=== PATIENT | male | born 1995 | race Caucasian/White ===

== ENCOUNTER 2022-06-09 18:58 | Inpatient (IN) | payer OTHER, MEDICAID, SELFPAY ==
[2022-06-09 19:38] VITALS: BP 116/68; PULSE 103; RESP 16; TEMP 36.6; O2SAT 99; BMI 20.3
[2022-06-09 19:58] LABS: Glucose, Whole Blood 599 mg/dL (60-115)
[2022-06-09 19:58] LABS: Glucose, Whole Blood > 600 mg/dL (60-115)
--- NOTE | 2022-06-09 20:03 | ED.GENADULT ---
HPI - General Adult General Chief complaint: Psychiatric Symptoms Stated complaint: SI Time Seen by Provider: 06/09/22 20:01 Source: patient Mode of arrival: ambulatory Limitations: no limitations History of Present Illness HPI narrative: This is a 26-year-old history significant for insulin-dependent diabetes, depression presenting to the emergency department with a chief complaint of suicidal ideation, depression times a few days worsening. Patient tells me that he has been battling a lot of issues at home such as housing instability, recently kicked out of his home. He tells me he was living with his cousin and today they kicked him out. He tells me he has no job, and has never been able to maintain a job. He also reports that today he had an argument with his mother. He tells me he walked here from [facility] in [facility]. Patient homicidal ideation. Suicidal with plan to overdose on insulin. Denies visual, auditory and tactile hallucinations. Denies drugs, alcohol and tobacco. He is concerned because he missed his last dose of insulin. He reports that yesterday he was discharged from [facility] where he was hospitalized with diabetic ketoacidosis. He tells me he does not feel like he is in DKA now however his sugars are elevated. Patient any medical complaints at such as chest pain, fevers, chills, nausea, vomiting, abdominal pain, vision changes and weak. Patient reports poor intake, tells me he has been having soup and no carbs. Denies toxic ingestion. Related Data Allergies Allergy/AdvReac Type Severity Reaction Status Date / Time No Known Allergies Allergy Verified 06/09/22 19:44 [No Known Allergies*] Review of Systems Review of Systems: Constitutional : No Weight loss, No Fever, No Chills, No Fatigue, No Malaise ENT/Mouth : No sore throat, No Rhinorrhea Eyes: No Eye Pain, No Swelling, No Redness Cardiovascular : No Chest Pain, No SOB, No Dyspnea on Exertion, No Orthopnea, No Edema, No Palpitations Respiratory : No Cough, No Sputum, No Wheezing Gastrointestinal : No Nausea, No Vomiting, No Diarrhea, No Constipation, No abdominal Pain, No Hematochezia, No Melena Genitourinary : No Dysuria, No Urinary Frequency, No Hematuria, Musculoskeletal : No joint pain, No Myalgias, No Joint Swelling Skin : No Skin Lesions, No rash Neuro : No Weakness, No Numbness, No Dizziness, No Headache Psych : + Anxiety/Panic, + Depression, + SI All other systems reviewed and are negative Yes all other systems are reviewed and are negative [facility] Past Medical History Attestation statement: The following information was validated with the patient. Source: old records reviewed and nursing notes reviewed Social History Social History Advance Directives: No Physical Exam ED Vital Signs: Vital Signs - 24 hr 06/09/22 19:38 Temperature 97.8 F Pulse Rate 103 H Respiratory Rate 16 Blood Pressure 116/68 Pulse Oximetry 99 Oxygen Delivery Method Room Air BMI result Body Mass Index 20.3 vss Appearance: Alert.? Oriented X3.? No acute distress.?Patient appears anxious and tearful Head: Normocephalic, atraumatic, no step-offs or deformities Eyes: Pupils equal, round and reactive to light.? ENT: Pharynx normal.? Neck: Normal inspection.? Neck supple.? CVS: Normal heart rate and rhythm.? Pulses normal.? Respiratory: No respiratory distress.? Breath sounds normal.? Abdomen: Soft and nontender.? Skin: Skin warm and dry.? Normal skin color.? Normal skin turgor.? Extremities: No lower extremity edema.? No calf ttp. 5/5 strength to bilateral upper and lower extremities Neuro: Oriented X 3.? No motor deficit.? No sensory deficit. CN 2-12 intact Course Reevaluation(s) Reevaluation #1: CBC with a normocytic anemia, chemistry with low sodium 130, patient receiving IV fluids at this time, patient is noted to have an elevated anion gap likely secondary to elevated glucose, patient also noted to have an acute kidney injury. Random glucose 681 currently receiving IV hydration will recheck point of care and administer insulin if necessary. Transaminases and alk-phos elevated however no tenderness to palpation of abdomen at this time. VBG with no acute findings. Acetone and UA pending. Unlikely that this is DKA. Salicylate low patient tells me he didnt ingest anything. Time: 21:00 Reevaluation #2: Acetone negative. Unlikely DKA. Repeat POC 310. Patient receiving hydration at this time will repeat BMP. Suspected plan admit to hospital for uncontrolled hyperglycemia and for JOSEPH. Then Psych concerns can be addressed Time: 22:01 Reevaluation #3: Lactic acidosis likely secondary to starvation ketosis due to poor po intake consistent with patient hx. Discussed this with my attending, unlikely infection Discuss this case with hospitalist who tells me this does not require hospital admission as patient is JOSEPH improved, and sugars well controlled. Also suspects lactic acidosis likely secondary to starvation ketosis. Time: 00:31 Additional Reevaluation(s): 0147 Patient now eating. Lactic pending. 0200 Repeat lactic 4.[address] Vazquez who will take over case. Medical Decision Making MDM Narrative Medical decision making narrative: 1998 26-year-old male presenting with suicidal ideation with plan to overdose on insulin and elevated sugars. Discharged from [facility] yesterday where he was admitted for diabetic ketoacidosis. Reports increasing home stressors Physical examination benign. However, patient appears to be tearful and anxious upon my exam. Vital signs stable Concerns for possible recurrent DKA. Will rule this out. Will rule out electrolyte abnormalities, infection. Plan at this time is medical clearance and evaluation by the behavioral health team. Medical Records Medical records reviewed: Yes I reviewed the patient's medical records. Lab Data Lab results reviewed: Yes I reviewed the patient's lab results. Result diagrams: 06/09/22 20:16 06/09/22 22:36 Labs: Lab Results 06/09/22 06/09/22 06/09/22 Range/Units 19:47 19:50 20:16 WBC 7.3 (4.8-10.8) X10*3/uL RBC 3.24 L (4.60-5.80) X10*6/uL Hgb 10.1 L (14.0-18.0) g/dl Hct 31.4 L (42.0-52.0) % MCV 96.9 (80.0-98.0) fL MCH 31.2 (27.0-33.0) pg MCHC 32.2 (31.0-36.0) g/dl RDW 13.1 (11.0-16.0) % Plt Count 475 H (160-400) X10*3/uL MPV 9.6 (9.4-12.4) fL Immature Gran % (Auto) 0.5 H (0.0-0.4) % Neut % (Auto) 60.1 (45-73) % Lymph % (Auto) 28.6 (20-40) % Sunflower % (Auto) 9.3 (2-11) % Eos % (Auto) 0.5 (0-4) % Baso % (Auto) 1.0 (0-2) % Lymph # (Auto) 2.1 (1.2-4.9) X10*3/uL Sunflower # (Auto) 0.7 (0.1-1.2) X10*3/uL Eos # (Auto) 0.0 (0.0-0.4) X10*3/uL Baso # (Auto) 0.1 (0.0-0.2) X10*3/uL Abs Immat Gran (auto) 0.04 H (0.00-0.03) X10*3/uL Absolute Neuts (auto) 4.4 (2.0-8.3) x10*3/uL Absolute Nucleated RBC 0.000 (0.0-0.012) X10*3/uL Nucleated RBC % (auto) 0.0 (0.0-0.2) /100WBC VBG pH (7.32-7.43) VBG pCO2 mmHg VBG pO2 mmHg VBG HCO3 (22-26) mmol/L VBG O2 Saturation % VBG Base Excess mmol/L Sodium (135-145) mmol/L Potassium (3.3-5.1) mmol/L Chloride (96-108) mmol/L Carbon Dioxide (22-29) mmol/L Anion Gap (12-20) BUN (9-16) mg/dL Creatinine (0.5-1.4) mg/dL Estim Creat Clear Calc Estimated GFR POC Glucose > 600 H* 599 H* (60-115) mg/dL Random Glucose (60-115) mg/dL Lactic Acid (0.5-2.0) mmol/L Lactic Acid F/U @ 2Hr (0.5-2.0) mmol/L Calcium (8.4-10.2) mg/dL Magnesium (1.6-2.6) mg/dL Total Bilirubin (0.0-1.0) mg/dL AST (5-37) U/L ALT (0-40) U/L Alkaline Phosphatase (39-117) U/L Total Protein (6.5-8.0) g/dL Albumin (3.5-5.0) g/dL Urine Color Urine Appearance Urine pH (5.0-9.0) Ur Specific [place] (1.005-1.025) Urine Protein (Neg-Trace) mg/dL Urine Glucose (UA) (Negative) mg/dL Urine Ketones (Negative) mg/dL Urine Blood (Negative) Urine Nitrite (Negative) Ur Leukocyte Esterase (Negative) Urine RBC (0-2) /HPF Urine WBC (0-5) /HPF Ur Squamous Epith Cells (0-2) /HPF Urine Bacteria (None Seen) Hyaline Casts (0-2) /LPF Salicylates (15-30) mg/dL Acetaminophen (<30) mcg/mL Acetone, Qual (Negative) COVID-19 (ARNOLDO) (Negative) COVID-19 Clin Com 06/09/22 06/09/22 06/09/22 Range/Units 20:16 20:16 20:21 WBC (4.8-10.8) X10*3/uL RBC (4.60-5.80) X10*6/uL Hgb (14.0-18.0) g/dl Hct (42.0-52.0) % MCV (80.0-98.0) fL MCH (27.0-33.0) pg MCHC (31.0-36.0) g/dl RDW (11.0-16.0) % Plt Count (160-400) X10*3/uL MPV (9.4-12.4) fL Immature Gran % (Auto) (0.0-0.4) % Neut % (Auto) (45-73) % Lymph % (Auto) (20-40) % Sunflower % (Auto) (2-11) % Eos % (Auto) (0-4) % Baso % (Auto) (0-2) % Lymph # (Auto) (1.2-4.9) X10*3/uL Sunflower # (Auto) (0.1-1.2) X10*3/uL Eos # (Auto) (0.0-0.4) X10*3/uL Baso # (Auto) (0.0-0.2) X10*3/uL Abs Immat Gran (auto) (0.00-0.03) X10*3/uL Absolute Neuts (auto) (2.0-8.3) x10*3/uL Absolute Nucleated RBC (0.0-0.012) X10*3/uL Nucleated RBC % (auto) (0.0-0.2) /100WBC VBG pH 7.36 (7.32-7.43) VBG pCO2 34 mmHg VBG pO2 51 mmHg VBG HCO3 19 L (22-26) mmol/L VBG O2 Saturation 76.0 % VBG Base Excess -4.9 mmol/L Sodium 130 L (135-145) mmol/L Potassium 4.6 (3.3-5.1) mmol/L Chloride 88 L (96-108) mmol/L Carbon Dioxide 18 L (22-29) mmol/L Anion Gap 29 H (12-20) BUN 23 H (9-16) mg/dL Creatinine 1.70 H (0.5-1.4) mg/dL Estim Creat Clear Calc 55.4 Estimated GFR 49 POC Glucose (60-115) mg/dL Random Glucose 681 H* (60-115) mg/dL Lactic Acid (0.5-2.0) mmol/L Lactic Acid F/U @ 2Hr (0.5-2.0) mmol/L Calcium 9.4 (8.4-10.2) mg/dL Magnesium 2.5 (1.6-2.6) mg/dL Total Bilirubin 0.3 (0.0-1.0) mg/dL AST 104 H (5-37) U/L ALT 108 H (0-40) U/L Alkaline Phosphatase 160 H (39-117) U/L Total Protein 7.5 (6.5-8.0) g/dL Albumin 4.4 (3.5-5.0) g/dL Urine Color Urine Appearance Urine pH (5.0-9.0) Ur Specific [place] (1.005-1.025) Urine Protein (Neg-Trace) mg/dL Urine Glucose (UA) (Negative) mg/dL Urine Ketones (Negative) mg/dL Urine Blood (Negative) Urine Nitrite (Negative) Ur Leukocyte Esterase (Negative) Urine RBC (0-2) /HPF Urine WBC (0-5) /HPF Ur Squamous Epith Cells (0-2) /HPF Urine Bacteria (None Seen) Hyaline Casts (0-2) /LPF Salicylates 10.1 L (15-30) mg/dL Acetaminophen < 1 (<30) mcg/mL Acetone, Qual Negative (Negative) COVID-19 (ARNOLDO) Negative (Negative) COVID-19 Clin Com See Note 06/09/22 06/09/22 06/09/22 Range/Units 21:52 22:36 22:36 WBC (4.8-10.8) X10*3/uL RBC (4.60-5.80) X10*6/uL Hgb (14.0-18.0) g/dl Hct (42.0-52.0) % MCV (80.0-98.0) fL MCH (27.0-33.0) pg MCHC (31.0-36.0) g/dl RDW (11.0-16.0) % Plt Count (160-400) X10*3/uL MPV (9.4-12.4) fL Immature Gran % (Auto) (0.0-0.4) % Neut % (Auto) (45-73) % Lymph % (Auto) (20-40) % Sunflower % (Auto) (2-11) % Eos % (Auto) (0-4) % Baso % (Auto) (0-2) % Lymph # (Auto) (1.2-4.9) X10*3/uL Sunflower # (Auto) (0.1-1.2) X10*3/uL Eos # (Auto) (0.0-0.4) X10*3/uL Baso # (Auto) (0.0-0.2) X10*3/uL Abs Immat Gran (auto) (0.00-0.03) X10*3/uL Absolute Neuts (auto) (2.0-8.3) x10*3/uL Absolute Nucleated RBC (0.0-0.012) X10*3/uL Nucleated RBC % (auto) (0.0-0.2) /100WBC VBG pH (7.32-7.43) VBG pCO2 mmHg VBG pO2 mmHg VBG HCO3 (22-26) mmol/L VBG O2 Saturation % VBG Base Excess mmol/L Sodium 139 (135-145) mmol/L Potassium 3.9 (3.3-5.1) mmol/L Chloride 95 L (96-108) mmol/L Carbon Dioxide 28 (22-29) mmol/L Anion Gap 20 (12-20) BUN 17 H (9-16) mg/dL Creatinine 1.13 (0.5-1.4) mg/dL Estim Creat Clear Calc 83.3 Estimated GFR > 60 POC Glucose 310 H (60-115) mg/dL Random Glucose 251 H D (60-115) mg/dL Lactic Acid 6.4 H* (0.5-2.0) mmol/L Lactic Acid F/U @ 2Hr (0.5-2.0) mmol/L Calcium 9.6 (8.4-10.2) mg/dL Magnesium (1.6-2.6) mg/dL Total Bilirubin (0.0-1.0) mg/dL AST (5-37) U/L ALT (0-40) U/L Alkaline Phosphatase (39-117) U/L Total Protein (6.5-8.0) g/dL Albumin (3.5-5.0) g/dL Urine Color Urine Appearance Urine pH (5.0-9.0) Ur Specific [place] (1.005-1.025) Urine Protein (Neg-Trace) mg/dL Urine Glucose (UA) (Negative) mg/dL Urine Ketones (Negative) mg/dL Urine Blood (Negative) Urine Nitrite (Negative) Ur Leukocyte Esterase (Negative) Urine RBC (0-2) /HPF Urine WBC (0-5) /HPF Ur Squamous Epith Cells (0-2) /HPF Urine Bacteria (None Seen) Hyaline Casts (0-2) /LPF Salicylates (15-30) mg/dL Acetaminophen (<30) mcg/mL Acetone, Qual (Negative) COVID-19 (ARNOLDO) (Negative) COVID-19 Clin Com 06/09/22 06/09/22 06/09/22 Range/Units 22:39 22:49 23:42 WBC (4.8-10.8) X10*3/uL RBC (4.60-5.80) X10*6/uL Hgb (14.0-18.0) g/dl Hct (42.0-52.0) % MCV (80.0-98.0) fL MCH (27.0-33.0) pg MCHC (31.0-36.0) g/dl RDW (11.0-16.0) % Plt Count (160-400) X10*3/uL MPV (9.4-12.4) fL Immature Gran % (Auto) (0.0-0.4) % Neut % (Auto) (45-73) % Lymph % (Auto) (20-40) % Sunflower % (Auto) (2-11) % Eos % (Auto) (0-4) % Baso % (Auto) (0-2) % Lymph # (Auto) (1.2-4.9) X10*3/uL Sunflower # (Auto) (0.1-1.2) X10*3/uL Eos # (Auto) (0.0-0.4) X10*3/uL Baso # (Auto) (0.0-0.2) X10*3/uL Abs Immat Gran (auto) (0.00-0.03) X10*3/uL Absolute Neuts (auto) (2.0-8.3) x10*3/uL Absolute Nucleated RBC (0.0-0.012) X10*3/uL Nucleated RBC % (auto) (0.0-0.2) /100WBC VBG pH (7.32-7.43) VBG pCO2 mmHg VBG pO2 mmHg VBG HCO3 (22-26) mmol/L VBG O2 Saturation % VBG Base Excess mmol/L Sodium (135-145) mmol/L Potassium (3.3-5.1) mmol/L Chloride (96-108) mmol/L Carbon Dioxide (22-29) mmol/L Anion Gap (12-20) BUN (9-16) mg/dL Creatinine (0.5-1.4) mg/dL Estim Creat Clear Calc Estimated GFR POC Glucose 215 H 276 H (60-115) mg/dL Random Glucose (60-115) mg/dL Lactic Acid (0.5-2.0) mmol/L Lactic Acid F/U @ 2Hr (0.5-2.0) mmol/L Calcium (8.4-10.2) mg/dL Magnesium (1.6-2.6) mg/dL Total Bilirubin (0.0-1.0) mg/dL AST (5-37) U/L ALT (0-40) U/L Alkaline Phosphatase (39-117) U/L Total Protein (6.5-8.0) g/dL Albumin (3.5-5.0) g/dL Urine Color Yellow Urine Appearance Clear Urine pH 6.5 (5.0-9.0) Ur Specific [place] 1.025 (1.005-1.025) Urine Protein Negative (Neg-Trace) mg/dL Urine Glucose (UA) >=1000 H (Negative) mg/dL Urine Ketones Negative (Negative) mg/dL Urine Blood Negative (Negative) Urine Nitrite Negative (Negative) Ur Leukocyte Esterase Negative (Negative) Urine RBC 0-2 (0-2) /HPF Urine WBC 0-5 (0-5) /HPF Ur Squamous Epith Cells 0-2 (0-2) /HPF Urine Bacteria None Seen (None Seen) Hyaline Casts 0-2 (0-2) /LPF Salicylates (15-30) mg/dL Acetaminophen (<30) mcg/mL Acetone, Qual (Negative) COVID-19 (ARNOLDO) (Negative) COVID-19 Clin Com 06/10/22 06/10/22 Range/Units 00:48 01:43 WBC (4.8-10.8) X10*3/uL RBC (4.60-5.80) X10*6/uL Hgb (14.0-18.0) g/dl Hct (42.0-52.0) % MCV (80.0-98.0) fL MCH (27.0-33.0) pg MCHC (31.0-36.0) g/dl RDW (11.0-16.0) % Plt Count (160-400) X10*3/uL MPV (9.4-12.4) fL Immature Gran % (Auto) (0.0-0.4) % Neut % (Auto) (45-73) % Lymph % (Auto) (20-40) % Sunflower % (Auto) (2-11) % Eos % (Auto) (0-4) % Baso % (Auto) (0-2) % Lymph # (Auto) (1.2-4.9) X10*3/uL Sunflower # (Auto) (0.1-1.2) X10*3/uL Eos # (Auto) (0.0-0.4) X10*3/uL Baso # (Auto) (0.0-0.2) X10*3/uL Abs Immat Gran (auto) (0.00-0.03) X10*3/uL Absolute Neuts (auto) (2.0-8.3) x10*3/uL Absolute Nucleated RBC (0.0-0.012) X10*3/uL Nucleated RBC % (auto) (0.0-0.2) /100WBC VBG pH (7.32-7.43) VBG pCO2 mmHg VBG pO2 mmHg VBG HCO3 (22-26) mmol/L VBG O2 Saturation % VBG Base Excess mmol/L Sodium (135-145) mmol/L Potassium (3.3-5.1) mmol/L Chloride (96-108) mmol/L Carbon Dioxide (22-29) mmol/L Anion Gap (12-20) BUN (9-16) mg/dL Creatinine (0.5-1.4) mg/dL Estim Creat Clear Calc Estimated GFR POC Glucose 268 H (60-115) mg/dL Random Glucose (60-115) mg/dL Lactic Acid (0.5-2.0) mmol/L Lactic Acid F/U @ 2Hr 4.2 H* (0.5-2.0) mmol/L Calcium (8.4-10.2) mg/dL Magnesium (1.6-2.6) mg/dL Total Bilirubin (0.0-1.0) mg/dL AST (5-37) U/L ALT (0-40) U/L Alkaline Phosphatase (39-117) U/L Total Protein (6.5-8.0) g/dL Albumin (3.5-5.0) g/dL Urine Color Urine Appearance Urine pH (5.0-9.0) Ur Specific [place] (1.005-1.025) Urine Protein (Neg-Trace) mg/dL Urine Glucose (UA) (Negative) mg/dL Urine Ketones (Negative) mg/dL Urine Blood (Negative) Urine Nitrite (Negative) Ur Leukocyte Esterase (Negative) Urine RBC (0-2) /HPF Urine WBC (0-5) /HPF Ur Squamous Epith Cells (0-2) /HPF Urine Bacteria (None Seen) Hyaline Casts (0-2) /LPF Salicylates (15-30) mg/dL Acetaminophen (<30) mcg/mL Acetone, Qual (Negative) COVID-19 (ARNOLDO) (Negative) COVID-19 Clin Com Critical Care Time Critical Care Time Critical Care Time: No Discharge Plan Discharge Clinical Impression: Suicidal ideation, JOSEPH (acute kidney injury), Acute hyperglycemia, Transaminitis, Acidosis, lactic Patient Disposition: Admitted As Inpatient
[2022-06-09 20:22] LABS: MANUAL DIFF FLAG NO
[2022-06-09] MEDS: 0.9 % Sodium Chloride 1,000 ML 999 ML IV ×4 (20:22→23:53)
[2022-06-09 20:24] LABS: Basophils Absolute Auto 0.1 X10*3/uL (0.0-0.2); Eosinophils Percent Auto 0.5 % (0-4); Hematocrit 31.4 % (42.0-52.0); Hemoglobin 10.1 g/dl (14.0-18.0); Imm Gran Abs Auto 0.04 X10*3/uL (0.00-0.03); Imm Gran Pct Auto 0.5 % (0.0-0.4); Lymphocytes Absolute Auto 2.1 X10*3/uL (1.2-4.9); Lymphocytes Percent Auto 28.6 % (20-40); Mean Corpuscular HGB Conc 32.2 g/dl (31.0-36.0); Mean Corpuscular Hemoglobin 31.2 pg (27.0-33.0); Mean Corpuscular Volume 96.9 fL (80.0-98.0); Mean Platelet Volume 9.6 fL (9.4-12.4); Monocytes Absolute Auto 0.7 X10*3/uL (0.1-1.2); Monocytes Percent Auto 9.3 % (2-11); Neutrophils Absolute Auto 4.4 x10*3/uL (2.0-8.3); Neutrophils Percent Auto 60.1 % (45-73); Platelet Count 475 X10*3/uL (160-400); Red Blood Count 3.24 X10*6/uL (4.60-5.80); Red Cell Distribution Width 13.1 % (11.0-16.0); White Blood Count 7.3 X10*3/uL (4.8-10.8)
[2022-06-09 20:27] LABS: VBG Base Excess -4.9 mmol/L; VBG HCO3 19 mmol/L (22-26); VBG pCO2 34 mmHg; VBG pH 7.36 (7.32-7.43); VBG pO2 51 mmHg
[2022-06-09 20:27] LABS: Venous Blood Gas Refer to POC result
[2022-06-09 20:40] LABS: COVID-19 Test Negative (Negative); IDNOW Serial# 16C4AD1C
[2022-06-09 20:47] LABS: Alanine Aminotransferase 108 U/L (0-40); Albumin Level 4.4 g/dL (3.5-5.0); Alkaline Phosphatase 160 U/L (39-117); Anion Gap 29 (12-20); Aspartate Amino Transferase 104 U/L (5-37); Bilirubin Total 0.3 mg/dL (0.0-1.0); Blood Urea Nitrogen 23 mg/dL (9-16); Calcium 9.4 mg/dL (8.4-10.2); Carbon Dioxide 18 mmol/L (22-29); Chloride 88 mmol/L (96-108); Creatinine Clr Calc Pharmacy 55.4; Estimated Glomerular Filt Rate 49; Magnesium 2.5 mg/dL (1.6-2.6); Potassium 4.6 mmol/L (3.3-5.1); Salicylate 10.1 mg/dL (15-30); Sodium 130 mmol/L (135-145); Total Protein 7.5 g/dL (6.5-8.0)
[2022-06-09 20:50] LABS: Acetaminophen LAB < 1 mcg/mL (<30)
[2022-06-09 20:58] LABS: Glucose Random 681 mg/dL (60-115)
[2022-06-09 21:07] LABS: Acetone, serum QL Negative (Negative)
[2022-06-09] MEDS: Insulin Regular, Human 100 UNIT/ML 3 ML VIAL 10 UNIT IVPUSH (21:37)
[2022-06-09 21:57] LABS: Glucose, Whole Blood 310 mg/dL (60-115)
[2022-06-09 22:53] LABS: Appearance Urine Clear; Color Urine Yellow; Glucose Urine UA >=1000 mg/dL (Negative); Leukocyte Esterase Urine Negative (Negative); Nitrite Urine Negative (Negative); PH 6.5 (5.0-9.0); Specific Gravity - Urine 1.025 (1.005-1.025); UMIC TRIGGER UACC YES; Urine Blood Negative (Negative); Urine Ketones Negative (Negative); Urine Protein Negative (Neg-Trace)
[2022-06-09 22:55] LABS: Glucose, Whole Blood 215 mg/dL (60-115)
[2022-06-09 22:58] LABS: Bacteria Urine None Seen (None Seen); Hyaline Casts Urine 0-2 /LPF (0-2); RBC Urine 0-2 /HPF (0-2); Squamous Epithelial Cell Urine 0-2 /HPF (0-2); WBC Urine 0-5 /HPF (0-5)
[2022-06-09 23:05] LABS: Anion Gap 20 (12-20); Blood Urea Nitrogen 17 mg/dL (9-16); Calcium 9.6 mg/dL (8.4-10.2); Carbon Dioxide 28 mmol/L (22-29); Chloride 95 mmol/L (96-108); Creatinine Clr Calc Pharmacy 83.3; Estimated Glomerular Filt Rate > 60; Glucose Random 251 mg/dL (60-115); Potassium 3.9 mmol/L (3.3-5.1); Sodium 139 mmol/L (135-145)
[2022-06-09 23:46] LABS: Glucose, Whole Blood 276 mg/dL (60-115)
--- NOTE | 2022-06-09 23:48 | PC.NURSE ---
poc 276 pt states this is his baseline, skin pink warm and dry. sitter present 1:1.
[2022-06-10] VITALS (7 sets, daily range): BP systolic 115–171; BP diastolic 64–106; PULSE 88–98; RESP 12–18; TEMP 36.6–36.9; O2SAT 92–99
[2022-06-10 00:24] LABS: Lactic Acid 6.4 mmol/L (0.5-2.0)
[2022-06-10 00:46] LABS: Reflex Lactate? Lactic Acid Added
[2022-06-10 00:52] LABS: Glucose, Whole Blood 268 mg/dL (60-115)
--- NOTE | 2022-06-10 01:49 | ECG_ITS ---
Test Reason : DIABETIC Blood Pressure : / mmHG Vent. Rate : 095 BPM Atrial Rate : 095 BPM P-R Int : 112 ms QRS Dur : 090 ms QT Int : 352 ms P-R-T Axes : 053 -01 063 degrees QTc Int : 442 ms Normal sinus rhythm Normal ECG No previous ECGs available Referred By: Nathan Edwards Electronically Signed By:TOREY MCKEON
[2022-06-10 02:01] LABS: ~Lactic Acid-LAB USE ONLY 4.2 mmol/L (0.5-2.0)
[2022-06-10 02:23] LABS: Procalcitonin 0.86 ng/mL
[2022-06-10 03:37] LABS: Acetaminophen LAB < 1 mcg/mL (<30); Salicylate < 5.0 mg/dL (15-30)
[2022-06-10] MEDS: 0.9 % Sodium Chloride 1,000 ML 999 ML IV (03:39)
[2022-06-10 03:46] LABS: Reflex Lactate? 2 Y
[2022-06-10 05:42] LABS: Glucose, Whole Blood 560 mg/dL (60-115)
--- NOTE | 2022-06-10 06:47 | PC.NURSE ---
pt poc elevated due to a sandwhicha and soda sugar free sprite given to pt.
[2022-06-10 06:48] LABS: ~Lactic Acid-LAB USE ONLY 1.6 mmol/L (0.5-2.0)
[2022-06-10 07:07] LABS: Glucose, Whole Blood 533 mg/dL (60-115)
[2022-06-10 07:15] LABS: Glucose, Whole Blood 579 mg/dL (60-115)
[2022-06-10] MEDS: Insulin Glargine,Hum.rec.anlog 100 UNIT/ML 10 ML VIAL 10 UNIT SUBCUT ×3 (08:32→20:49)
--- NOTE | 2022-06-10 08:44 | PC.NURSE ---
sitter at bedside, talkative and pleasant, breakfast given after insulin, md spoke w pt and pharmacy did as well, now eating breakfast
--- NOTE | 2022-06-10 09:07 | PHA.MEDREC ---
Pharmacy Consult ? Medication Reconciliation Pharmacy has completed the medication reconciliation. Pt poor historian, seemingly getting confused about long vs short acting insulin. Stated he doesn't take his long acting at the same time daily because it depends on if I eat. He also was unclear about whether he takes it once or twice daily. Also stated he no longer takes his escitalopram due to GI side effects
[2022-06-10 09:08] LABS: Basophils Absolute Auto 0.1 X10*3/uL (0.0-0.2); Eosinophils Absolute Auto 0.2 X10*3/uL (0.0-0.4); Eosinophils Percent Auto 2.2 % (0-4); Hematocrit 32.1 % (42.0-52.0); Hemoglobin 10.5 g/dl (14.0-18.0); Imm Gran Abs Auto 0.01 X10*3/uL (0.00-0.03); Imm Gran Pct Auto 0.1 % (0.0-0.4); Lymphocytes Absolute Auto 2.4 X10*3/uL (1.2-4.9); Lymphocytes Percent Auto 35.5 % (20-40); MANUAL DIFF FLAG NO; Mean Corpuscular HGB Conc 32.7 g/dl (31.0-36.0); Mean Corpuscular Hemoglobin 30.9 pg (27.0-33.0); Mean Corpuscular Volume 94.4 fL (80.0-98.0); Mean Platelet Volume 9.3 fL (9.4-12.4); Monocytes Absolute Auto 0.5 X10*3/uL (0.1-1.2); Monocytes Percent Auto 7.2 % (2-11); Neutrophils Absolute Auto 3.6 x10*3/uL (2.0-8.3); Platelet Count 424 X10*3/uL (160-400); Red Cell Distribution Width 13.1 % (11.0-16.0); White Blood Count 6.7 X10*3/uL (4.8-10.8)
[2022-06-10 09:09] LABS: Venous Blood Gas Refer to POC result
[2022-06-10 09:09] LABS: VBG Base Excess -3.1 mmol/L; VBG HCO3 20 mmol/L (22-26); VBG pCO2 33 mmHg; VBG pO2 98 mmHg
[2022-06-10 09:25] LABS: Anion Gap 21 (12-20); Blood Urea Nitrogen 15 mg/dL (9-16); Calcium 8.7 mg/dL (8.4-10.2); Carbon Dioxide 22 mmol/L (22-29); Chloride 92 mmol/L (96-108); Creatinine Clr Calc Pharmacy 74.1; Estimated Glomerular Filt Rate > 60; Glucose Random 687 mg/dL (60-115); Potassium 4.5 mmol/L (3.3-5.1); Sodium 130 mmol/L (135-145)
[2022-06-10 09:43] LABS: Insulin 12 uU/mL (2-29)
[2022-06-10 11:43] LABS: Glucose, Whole Blood 302 mg/dL (60-115)
[2022-06-10 12:38] LABS: Glucose, Whole Blood 316 mg/dL (60-115)
[2022-06-10 13:35] LABS: Glucose, Whole Blood 293 mg/dL (60-115)
[2022-06-10] MEDS: Insulin Lispro 100 UNIT/ML 3 ML VIAL SUBCUT ×2 (15:17→20:48)
[2022-06-10 17:03] LABS: Glucose, Whole Blood 106 mg/dL (60-115)
--- NOTE | 2022-06-10 18:14 | PC.NURSE ---
came from main ed due to depression and si waiting for bed on m5
[2022-06-10 18:15] LABS: Glucose, Whole Blood 116 mg/dL (60-115)
[2022-06-10 20:35] LABS: Glucose, Whole Blood 366 mg/dL (60-115)
--- NOTE | 2022-06-10 21:07 | PC.NURSE ---
Pt was admitted on CV to M3 @1915 with SI w/plan to OD on diabetes medications. COVID-negative. During assessment, pt was A&O, INAD, pleasant and cooperative. He is recently homeless after being kicked out of cousin?s house, has been arguing with his mother and feeling hopeless. ALLERGIES: NKA. Legal status: EDUARDA Sosa No. COVID ?Negative 06/09/22 UTOX: Salicylates <5(L); acetaminophen <1; acetones negative. Mood: depressed; Affect restricted. Substance use: None. Vapes nicotine. MedHx: DM since age 13. DKA at age 21. Pt reports hx of blood sugar dropping at night. Neuropathy in feet bilat. Hx acute kidney injury per record, however pt denied. Reports broken L great toe; recently R hand injury after hitting hard surface. PsycheHx: F43.21 Adjustment disorder; F32.9 Unspecified depressive disorder..VS at admission 98.4, 93, 16, 124/84, 99%. POC 366, received scheduled Lantus and Humalog per sliding scale.
[2022-06-10 22:00] LABS: Glucose, Whole Blood 332 mg/dL (60-115)
[2022-06-11] MEDS: traZODone HCL 50 MG TABLET PO ×2 (00:34→22:56)
[2022-06-11 05:30] LABS: Glucose, Whole Blood 179 mg/dL (60-115)
[2022-06-11 08:00] VITALS: BP 91/54; PULSE 99; RESP 16; TEMP 36.6; O2SAT 97
[2022-06-11 08:59] LABS: Glucose, Whole Blood 168 mg/dL (60-115)
[2022-06-11 09:12] LABS: Estimated Average Glucose 269 mg/dL
[2022-06-11] MEDS: Omeprazole 20 MG CAPSULE.DR PO (09:25)
[2022-06-11] MEDS: Acetaminophen 325 MG TABLET 650 MG PO (09:25)
[2022-06-11] MEDS: Insulin Lispro 100 UNIT/ML 3 ML VIAL SUBCUT ×4 (09:27→21:27)
[2022-06-11] MEDS: Insulin Glargine,Hum.rec.anlog 100 UNIT/ML 10 ML VIAL 10 UNIT SUBCUT ×2 (09:29→21:28)
[2022-06-11 09:55] LABS: Cholesterol 229 mg/dL; HDL Cholesterol 64 mg/dL; LDL Cholesterol Calculated 134 mg/dl; Magnesium 2.1 mg/dL (1.6-2.6); Triglycerides 155 mg/dL
[2022-06-11 10:02] LABS: Thyroid Stimulating Hormone 3.49 uIU/mL (0.32-4.0)
[2022-06-11 10:09] LABS: Folate 8.2 ng/mL (> or = 4.0); Vitamin B12 421 pg/mL (200-900)
[2022-06-11 12:40] LABS: Glucose, Whole Blood 264 mg/dL (60-115)
[2022-06-11 17:16] LABS: Glucose, Whole Blood 373 mg/dL (60-115)
--- NOTE | 2022-06-11 17:53 | HO.PSYADMNOT ---
HPI Date of Service: 06/11/22 Chief Complaint: depression with suicidal ideation HPI Narrative: per crisis evaluation, pt self-presented to [facility] ED with c/o SI. he denied SI at the time of the crisis evaluation, however, and c/o depression and anxiety due to situational stress (housing and finances). onset was 06/09, day prior to presentation. he presented with dysphoric, tearful, affect. he stated his grandmother had urged him to go to the ED and the hospital would help him with housing if he was suicidal. pt was requesting discharge with referral to therapy. an hour after plan for discharge with outpt referrals was made, pt stated he no longer felt safe for discharge and informed staff that if he were discharged from the ED he would overdose on his insulin. he then told staff he has had numerous inpt stays; one was at [facility] about 5 years ago, which was ultimately verified. he was then referred for admission. on interview with on psych floor, pt reported he was kicked out of his cousin's house the day of his presentation to the ED. he also said something about going back and forth between shelters in the time since he was kicked out of his cousin's house, which was confusing, because by the timeframe he presented he did not have any nights between his cousin's house and the ED. he stated he is looking for entitlements and half-way. he believes he has a mental illness which affects his ability to work and would like to document this and apply for SSDI. he reported SI currently. he stated he sleeps 2-3 hours nightly and is experiencing hopelessness. he describes his concentration as poor. he states his motivation and interest are adequate, his energy is OK, and his appetite is really good. he has no requests or hopes for the hospitalization aside from help getting entitlements/housing and documented as being psychiatrically disabled. Past Psychiatric History: reported long-standing h/o depression and h/o outpt Tx with psychiatry to crisis team. pt denied h/o SA to crisis team, only ideation to overdose on insulin. reports more than 5 hosps to [facility] about a year ago in [place]. states had 4 in [place] and one at [facility] about 5 yrs ago. reports he has attempted suicide via overdose twice in [place]. he denies any h/o SIB. states he has not had any outpt Tx since he was about 17 yo. Medical Evaluation Reviewed: Yes [facility] Narrative: DM Family History: denies Social History: came up from [place] 3 or 4 months ago. 11th grade education. unemployed, reports he had been working at [employer] until last month, when seasonal lay-offs began. had been staying with his cousin until they kicked him out 06/09. grandmother is primary social support. Substance History: denies any current substance use; vape pen only Trauma History: denies Diagnostics Vital Signs (24Hr): Vital Signs - 24 hr 06/10/22 18:20 06/10/22 19:15 06/10/22 19:15 Temperature 98.4 F 98.4 F Pulse Rate 93 93 Respiratory Rate 16 16 16 Blood Pressure 124/84 124/84 Pulse Oximetry 99 99 Oxygen Delivery Method Room Air Room Air 06/10/22 20:48 06/11/22 08:00 Temperature 98.4 F 97.8 F Pulse Rate 93 99 Respiratory Rate 18 16 Blood Pressure 124/84 91/54 L Pulse Oximetry 99 97 Oxygen Delivery Method Room Air Room Air BMI result Body Mass Index 20.3 Labs Results: 06/10/22 08:58 06/10/22 08:58 Labs: Laboratory Results - last 48 hr 06/09/22 06/09/22 06/09/22 19:47 19:50 20:16 WBC 7.3 RBC 3.24 L Hgb 10.1 L Hct 31.4 L MCV 96.9 MCH 31.2 MCHC 32.2 RDW 13.1 Plt Count 475 H MPV 9.6 Immature Gran % (Auto) 0.5 H Neut % (Auto) 60.1 Lymph % (Auto) 28.6 Bonner % (Auto) 9.3 Eos % (Auto) 0.5 Baso % (Auto) 1.0 Lymph # (Auto) 2.1 Bonner # (Auto) 0.7 Eos # (Auto) 0.0 Baso # (Auto) 0.1 Abs Immat Gran (auto) 0.04 H Absolute Neuts (auto) 4.4 Absolute Nucleated RBC 0.000 Nucleated RBC % (auto) 0.0 VBG pH VBG pCO2 VBG pO2 VBG HCO3 VBG O2 Saturation VBG Base Excess Sodium Potassium Chloride Carbon Dioxide Anion Gap BUN Creatinine Estim Creat Clear Calc Estimated GFR POC Glucose > 600 H* 599 H* Random Glucose Estimat Average Glucose Hemoglobin A1c % Insulin Level Lactic Acid Lactic Acid F/U @ 2Hr Lactic Acid F/U @ 4Hr Calcium Magnesium Total Bilirubin AST ALT Alkaline Phosphatase Total Protein Albumin Triglycerides Cholesterol LDL Cholesterol, Calc HDL Cholesterol Vitamin B12 Folate Procalcitonin TSH Free T4 Urine Color Urine Appearance Urine pH Ur Specific [place] Urine Protein Urine Glucose (UA) Urine Ketones Urine Blood Urine Nitrite Ur Leukocyte Esterase Urine RBC Urine WBC Ur Squamous Epith Cells Urine Bacteria Hyaline Casts Salicylates Acetaminophen Acetone, Qual COVID-19 ([facility]) COVID-19 [employer] Com 06/09/22 06/09/22 06/09/22 20:16 20:16 20:21 WBC RBC Hgb Hct MCV MCH MCHC RDW Plt Count MPV Immature Gran % (Auto) Neut % (Auto) Lymph % (Auto) [place] % (Auto) Eos % (Auto) Baso % (Auto) Lymph # (Auto) [place] # (Auto) Eos # (Auto) Baso # (Auto) Abs Immat Gran (auto) Absolute Neuts (auto) Absolute Nucleated RBC Nucleated RBC % (auto) VBG pH 7.36 VBG pCO2 34 VBG pO2 51 VBG HCO3 19 L VBG O2 Saturation 76.0 VBG Base Excess -4.9 Sodium 130 L Potassium 4.6 Chloride 88 L Carbon Dioxide 18 L Anion Gap 29 H BUN 23 H Creatinine 1.70 H Estim Creat Clear Calc 55.4 Estimated GFR 49 POC Glucose Random Glucose 681 H* Estimat Average Glucose Hemoglobin A1c % Insulin Level Lactic Acid Lactic Acid F/U @ 2Hr Lactic Acid F/U @ 4Hr Calcium 9.4 Magnesium 2.5 Total Bilirubin 0.3 AST 104 H ALT 108 H Alkaline Phosphatase 160 H Total Protein 7.5 Albumin 4.4 Triglycerides Cholesterol LDL Cholesterol, Calc HDL Cholesterol Vitamin B12 Folate Procalcitonin TSH Free T4 Urine Color Urine Appearance Urine pH Ur Specific [place] Urine Protein Urine Glucose (UA) Urine Ketones Urine Blood Urine Nitrite Ur Leukocyte Esterase Urine RBC Urine WBC Ur Squamous Epith Cells Urine Bacteria Hyaline Casts Salicylates 10.1 L Acetaminophen < 1 Acetone, Qual Negative COVID-19 ([facility]DO) Negative COVID-19 Clin Com See Note 06/09/22 06/09/22 06/09/22 21:52 22:36 22:36 WBC RBC Hgb Hct MCV MCH MCHC RDW Plt Count MPV Immature Gran % (Auto) Neut % (Auto) Lymph % (Auto) [place] % (Auto) Eos % (Auto) Baso % (Auto) Lymph # (Auto) [place] # (Auto) Eos # (Auto) Baso # (Auto) Abs Immat Gran (auto) Absolute Neuts (auto) Absolute Nucleated RBC Nucleated RBC % (auto) VBG pH VBG pCO2 VBG pO2 VBG HCO3 VBG O2 Saturation VBG Base Excess Sodium 139 Potassium 3.9 Chloride 95 L Carbon Dioxide 28 Anion Gap 20 BUN 17 H Creatinine 1.13 Estim Creat Clear Calc 83.3 Estimated GFR > 60 POC Glucose 310 H Random Glucose 251 H D Estimat Average Glucose Hemoglobin A1c % Insulin Level Lactic Acid 6.4 H* Lactic Acid F/U @ 2Hr Lactic Acid F/U @ 4Hr Calcium 9.6 Magnesium Total Bilirubin AST ALT Alkaline Phosphatase Total Protein Albumin Triglycerides Cholesterol LDL Cholesterol, Calc HDL Cholesterol Vitamin B12 Folate Procalcitonin TSH Free T4 Urine Color Urine Appearance Urine pH Ur Specific [place] Urine Protein Urine Glucose (UA) Urine Ketones Urine Blood Urine Nitrite Ur Leukocyte Esterase Urine RBC Urine WBC Ur Squamous Epith Cells Urine Bacteria Hyaline Casts Salicylates Acetaminophen Acetone, Qual COVID-19 ([facility]) COVID-19 Clin Com 06/09/22 06/09/22 06/09/22 22:39 22:49 23:42 WBC RBC Hgb Hct MCV MCH MCHC RDW Plt Count MPV Immature Gran % (Auto) Neut % (Auto) Lymph % (Auto) [place] % (Auto) Eos % (Auto) Baso % (Auto) Lymph # (Auto) [place] # (Auto) Eos # (Auto) Baso # (Auto) Abs Immat Gran (auto) Absolute Neuts (auto) Absolute Nucleated RBC Nucleated RBC % (auto) VBG pH VBG pCO2 VBG pO2 VBG HCO3 VBG O2 Saturation VBG Base Excess Sodium Potassium Chloride Carbon Dioxide Anion Gap BUN Creatinine Estim Creat Clear Calc Estimated GFR POC Glucose 215 H 276 H Random Glucose Estimat Average Glucose Hemoglobin A1c % Insulin Level Lactic Acid Lactic Acid F/U @ 2Hr Lactic Acid F/U @ 4Hr Calcium Magnesium Total Bilirubin AST ALT Alkaline Phosphatase Total Protein Albumin Triglycerides Cholesterol LDL Cholesterol, Calc HDL Cholesterol Vitamin B12 Folate Procalcitonin TSH Free T4 Urine Color Yellow Urine Appearance Clear Urine pH 6.5 Ur Specific [place] 1.025 Urine Protein Negative Urine Glucose (UA) >=1000 H Urine Ketones Negative Urine Blood Negative Urine Nitrite Negative Ur Leukocyte Esterase Negative Urine RBC 0-2 Urine WBC 0-5 Ur Squamous Epith Cells 0-2 Urine Bacteria None Seen Hyaline Casts 0-2 Salicylates Acetaminophen Acetone, Qual COVID-19 ([facility]) COVID-19 Clin Com 06/10/22 06/10/22 06/10/22 00:48 01:43 02:55 WBC RBC Hgb Hct MCV MCH MCHC RDW Plt Count MPV Immature Gran % (Auto) Neut % (Auto) Lymph % (Auto) [place] % (Auto) Eos % (Auto) Baso % (Auto) Lymph # (Auto) [place] # (Auto) Eos # (Auto) Baso # (Auto) Abs Immat Gran (auto) Absolute Neuts (auto) Absolute Nucleated RBC Nucleated RBC % (auto) VBG pH VBG pCO2 VBG pO2 VBG HCO3 VBG O2 Saturation VBG Base Excess Sodium Potassium Chloride Carbon Dioxide Anion Gap BUN Creatinine Estim Creat Clear Calc Estimated GFR POC Glucose 268 H Random Glucose Estimat Average Glucose Hemoglobin A1c % Insulin Level Lactic Acid Lactic Acid F/U @ 2Hr 4.2 H* Lactic Acid F/U @ 4Hr Calcium Magnesium Total Bilirubin AST ALT Alkaline Phosphatase Total Protein Albumin Triglycerides Cholesterol LDL Cholesterol, Calc HDL Cholesterol Vitamin B12 Folate Procalcitonin TSH Free T4 Urine Color Urine Appearance Urine pH Ur Specific [place] Urine Protein Urine Glucose (UA) Urine Ketones Urine Blood Urine Nitrite Ur Leukocyte Esterase Urine RBC Urine WBC Ur Squamous Epith Cells Urine Bacteria Hyaline Casts Salicylates < 5.0 L Acetaminophen < 1 Acetone, Qual COVID-19 ([facility]) COVID-19 Clin Com 06/10/22 06/10/22 06/10/22 05:37 06:09 06:50 WBC RBC Hgb Hct MCV MCH MCHC RDW Plt Count MPV Immature Gran % (Auto) Neut % (Auto) Lymph % (Auto) [place] % (Auto) Eos % (Auto) Baso % (Auto) Lymph # (Auto) [place] # (Auto) Eos # (Auto) Baso # (Auto) Abs Immat Gran (auto) Absolute Neuts (auto) Absolute Nucleated RBC Nucleated RBC % (auto) VBG pH VBG pCO2 VBG pO2 VBG HCO3 VBG O2 Saturation VBG Base Excess Sodium Potassium Chloride Carbon Dioxide Anion Gap BUN Creatinine Estim Creat Clear Calc Estimated GFR POC Glucose 560 H* 533 H* Random Glucose Estimat Average Glucose Hemoglobin A1c % Insulin Level Lactic Acid Lactic Acid F/U @ 2Hr Lactic Acid F/U @ 4Hr 1.6 Calcium Magnesium Total Bilirubin AST ALT Alkaline Phosphatase Total Protein Albumin Triglycerides Cholesterol LDL Cholesterol, Calc HDL Cholesterol Vitamin B12 Folate Procalcitonin TSH Free T4 Urine Color Urine Appearance Urine pH Ur Specific [place] Urine Protein Urine Glucose (UA) Urine Ketones Urine Blood Urine Nitrite Ur Leukocyte Esterase Urine RBC Urine WBC Ur Squamous Epith Cells Urine Bacteria Hyaline Casts Salicylates Acetaminophen Acetone, Qual COVID-19 ([facility]) COVID-19 [employer] Com 06/10/22 06/10/22 06/10/22 07:11 08:58 08:58 WBC 6.7 RBC 3.40 L Hgb 10.5 L Hct 32.1 L MCV 94.4 MCH 30.9 MCHC 32.7 RDW 13.1 Plt Count 424 H MPV 9.3 L Immature Gran % (Auto) 0.1 Neut % (Auto) 54.0 Lymph % (Auto) 35.5 [place] % (Auto) 7.2 Eos % (Auto) 2.2 Baso % (Auto) 1.0 Lymph # (Auto) 2.4 [place] # (Auto) 0.5 Eos # (Auto) 0.2 Baso # (Auto) 0.1 Abs Immat Gran (auto) 0.01 Absolute Neuts (auto) 3.6 Absolute Nucleated RBC 0.000 Nucleated RBC % (auto) 0.0 VBG pH VBG pCO2 VBG pO2 VBG HCO3 VBG O2 Saturation VBG Base Excess Sodium 130 L Potassium 4.5 Chloride 92 L Carbon Dioxide 22 Anion Gap 21 H BUN 15 Creatinine 1.27 Estim Creat Clear Calc 74.1 Estimated GFR > 60 POC Glucose 579 H* Random Glucose 687 H* Estimat Average Glucose Hemoglobin A1c % Insulin Level 12 Lactic Acid Lactic Acid F/U @ 2Hr Lactic Acid F/U @ 4Hr Calcium 8.7 D Magnesium Total Bilirubin AST ALT Alkaline Phosphatase Total Protein Albumin Triglycerides Cholesterol LDL Cholesterol, Calc HDL Cholesterol Vitamin B12 Folate Procalcitonin TSH Free T4 Urine Color Urine Appearance Urine pH Ur Specific [place] Urine Protein Urine Glucose (UA) Urine Ketones Urine Blood Urine Nitrite Ur Leukocyte Esterase Urine RBC Urine WBC Ur Squamous Epith Cells Urine Bacteria Hyaline Casts Salicylates Acetaminophen Acetone, Qual COVID-19 ([facility]DO) COVID-19 [facility] 06/10/22 06/10/22 06/10/22 08:59 09:04 11:40 WBC RBC Hgb Hct MCV MCH MCHC RDW Plt Count MPV Immature Gran % (Auto) Neut % (Auto) Lymph % (Auto) [place] % (Auto) Eos % (Auto) Baso % (Auto) Lymph # (Auto) [place] # (Auto) Eos # (Auto) Baso # (Auto) Abs Immat Gran (auto) Absolute Neuts (auto) Absolute Nucleated RBC Nucleated RBC % (auto) VBG pH 7.40 VBG pCO2 33 VBG pO2 98 VBG HCO3 20 L VBG O2 Saturation 98.0 VBG Base Excess -3.1 Sodium Potassium Chloride Carbon Dioxide Anion Gap BUN Creatinine Estim Creat Clear Calc Estimated GFR POC Glucose 302 H Random Glucose Estimat Average Glucose Hemoglobin A1c % Insulin Level Lactic Acid 2.0 Lactic Acid F/U @ 2Hr Lactic Acid F/U @ 4Hr Calcium Magnesium Total Bilirubin AST ALT Alkaline Phosphatase Total Protein Albumin Triglycerides Cholesterol LDL Cholesterol, Calc HDL Cholesterol Vitamin B12 Folate Procalcitonin TSH Free T4 Urine Color Urine Appearance Urine pH Ur Specific [place] Urine Protein Urine Glucose (UA) Urine Ketones Urine Blood Urine Nitrite Ur Leukocyte Esterase Urine RBC Urine WBC Ur Squamous Epith Cells Urine Bacteria Hyaline Casts Salicylates Acetaminophen Acetone, Qual COVID-19 ([facility]) COVID-19 [facility] 06/10/22 06/10/22 06/10/22 12:32 13:28 17:00 WBC RBC Hgb Hct MCV MCH MCHC RDW Plt Count MPV Immature Gran % (Auto) Neut % (Auto) Lymph % (Auto) [place] % (Auto) Eos % (Auto) Baso % (Auto) Lymph # (Auto) [place] # (Auto) Eos # (Auto) Baso # (Auto) Abs Immat Gran (auto) Absolute Neuts (auto) Absolute Nucleated RBC Nucleated RBC % (auto) VBG pH VBG pCO2 VBG pO2 VBG HCO3 VBG O2 Saturation VBG Base Excess Sodium Potassium Chloride Carbon Dioxide Anion Gap BUN Creatinine Estim Creat Clear Calc Estimated GFR POC Glucose 316 H 293 H 106 Random Glucose Estimat Average Glucose Hemoglobin A1c % Insulin Level Lactic Acid Lactic Acid F/U @ 2Hr Lactic Acid F/U @ 4Hr Calcium Magnesium Total Bilirubin AST ALT Alkaline Phosphatase Total Protein Albumin Triglycerides Cholesterol LDL Cholesterol, Calc HDL Cholesterol Vitamin B12 Folate Procalcitonin TSH Free T4 Urine Color Urine Appearance Urine pH Ur Specific [place] Urine Protein Urine Glucose (UA) Urine Ketones Urine Blood Urine Nitrite Ur Leukocyte Esterase Urine RBC Urine WBC Ur Squamous Epith Cells Urine Bacteria Hyaline Casts Salicylates Acetaminophen Acetone, Qual COVID-19 ([facility]) COVID-19 Clin Com 06/10/22 06/10/22 06/10/22 18:11 20:16 20:31 WBC RBC Hgb Hct MCV MCH MCHC RDW Plt Count MPV Immature Gran % (Auto) Neut % (Auto) Lymph % (Auto) [place] % (Auto) Eos % (Auto) Baso % (Auto) Lymph # (Auto) [place] # (Auto) Eos # (Auto) Baso # (Auto) Abs Immat Gran (auto) Absolute Neuts (auto) Absolute Nucleated RBC Nucleated RBC % (auto) VBG pH VBG pCO2 VBG pO2 VBG HCO3 VBG O2 Saturation VBG Base Excess Sodium Potassium Chloride Carbon Dioxide Anion Gap BUN Creatinine Estim Creat Clear Calc Estimated GFR POC Glucose 116 H 366 H* Random Glucose Estimat Average Glucose Hemoglobin A1c % Insulin Level Lactic Acid Lactic Acid F/U @ 2Hr Lactic Acid F/U @ 4Hr Calcium Magnesium Total Bilirubin AST ALT Alkaline Phosphatase Total Protein Albumin Triglycerides Cholesterol LDL Cholesterol, Calc HDL Cholesterol Vitamin B12 Folate Procalcitonin 0.86 TSH Free T4 Urine Color Urine Appearance Urine pH Ur Specific [place] Urine Protein Urine Glucose (UA) Urine Ketones Urine Blood Urine Nitrite Ur Leukocyte Esterase Urine RBC Urine WBC Ur Squamous Epith Cells Urine Bacteria Hyaline Casts Salicylates Acetaminophen Acetone, Qual COVID-19 ([facility]) COVID-19 Clin Com 06/10/22 06/11/22 06/11/22 21:55 05:25 07:52 WBC RBC Hgb Hct MCV MCH MCHC RDW Plt Count MPV Immature Gran % (Auto) Neut % (Auto) Lymph % (Auto) [place] % (Auto) Eos % (Auto) Baso % (Auto) Lymph # (Auto) [place] # (Auto) Eos # (Auto) Baso # (Auto) Abs Immat Gran (auto) Absolute Neuts (auto) Absolute Nucleated RBC Nucleated RBC % (auto) VBG pH VBG pCO2 VBG pO2 VBG HCO3 VBG O2 Saturation VBG Base Excess Sodium Potassium Chloride Carbon Dioxide Anion Gap BUN Creatinine Estim Creat Clear Calc Estimated GFR POC Glucose 332 H 179 H Random Glucose Estimat Average Glucose 269 Hemoglobin A1c % 11.0 Insulin Level Lactic Acid Lactic Acid F/U @ 2Hr Lactic Acid F/U @ 4Hr Calcium Magnesium Total Bilirubin AST ALT Alkaline Phosphatase Total Protein Albumin Triglycerides Cholesterol LDL Cholesterol, Calc HDL Cholesterol Vitamin B12 Folate Procalcitonin TSH Free T4 Urine Color Urine Appearance Urine pH Ur Specific [place] Urine Protein Urine Glucose (UA) Urine Ketones Urine Blood Urine Nitrite Ur Leukocyte Esterase Urine RBC Urine WBC Ur Squamous Epith Cells Urine Bacteria Hyaline Casts Salicylates Acetaminophen Acetone, Qual COVID-19 ([facility]) [employer] 06/11/22 06/11/22 06/11/22 07:52 07:52 08:51 WBC RBC Hgb Hct MCV MCH MCHC RDW Plt Count MPV Immature Gran % (Auto) Neut % (Auto) Lymph % (Auto) [place] % (Auto) Eos % (Auto) Baso % (Auto) Lymph # (Auto) [place] # (Auto) Eos # (Auto) Baso # (Auto) Abs Immat Gran (auto) Absolute Neuts (auto) Absolute Nucleated RBC Nucleated RBC % (auto) VBG pH VBG pCO2 VBG pO2 VBG HCO3 VBG O2 Saturation VBG Base Excess Sodium Potassium Chloride Carbon Dioxide Anion Gap BUN Creatinine Estim Creat Clear Calc Estimated GFR POC Glucose 168 H Random Glucose Estimat Average Glucose Hemoglobin A1c % Insulin Level Lactic Acid Lactic Acid F/U @ 2Hr Lactic Acid F/U @ 4Hr Calcium Magnesium 2.1 Total Bilirubin AST ALT Alkaline Phosphatase Total Protein Albumin Triglycerides 155 Cholesterol 229 LDL Cholesterol, Calc 134 HDL Cholesterol 64 Vitamin B12 421 Folate 8.2 Procalcitonin TSH 3.49 Free T4 1.10 Urine Color Urine Appearance Urine pH Ur Specific [place] Urine Protein Urine Glucose (UA) Urine Ketones Urine Blood Urine Nitrite Ur Leukocyte Esterase Urine RBC Urine WBC Ur Squamous Epith Cells Urine Bacteria Hyaline Casts Salicylates Acetaminophen Acetone, Qual COVID-19 ([facility]OLDO) [employer] 06/11/22 06/11/22 12:37 17:11 WBC RBC Hgb Hct MCV MCH MCHC RDW Plt Count MPV Immature Gran % (Auto) Neut % (Auto) Lymph % (Auto) [place] % (Auto) Eos % (Auto) Baso % (Auto) Lymph # (Auto) [place] # (Auto) Eos # (Auto) Baso # (Auto) Abs Immat Gran (auto) Absolute Neuts (auto) Absolute Nucleated RBC Nucleated RBC % (auto) VBG pH VBG pCO2 VBG pO2 VBG HCO3 VBG O2 Saturation VBG Base Excess Sodium Potassium Chloride Carbon Dioxide Anion Gap BUN Creatinine Estim Creat Clear Calc Estimated GFR POC Glucose 264 H 373 H* Random Glucose Estimat Average Glucose Hemoglobin A1c % Insulin Level Lactic Acid Lactic Acid F/U @ 2Hr Lactic Acid F/U @ 4Hr Calcium Magnesium Total Bilirubin AST ALT Alkaline Phosphatase Total Protein Albumin Triglycerides Cholesterol LDL Cholesterol, Calc HDL Cholesterol Vitamin B12 Folate Procalcitonin TSH Free T4 Urine Color Urine Appearance Urine pH Ur Specific [place] Urine Protein Urine Glucose (UA) Urine Ketones Urine Blood Urine Nitrite Ur Leukocyte Esterase Urine RBC Urine WBC Ur Squamous Epith Cells Urine Bacteria Hyaline Casts Salicylates Acetaminophen Acetone, Qual COVID-19 ([facility]) COVID-19 Clin Com Meds/Allergies Meds Home Medications Medication Instructions Recorded Confirmed Type insulin glargine 100 unit/mL (3 9 unit subcut DAILY 06/10/22 06/10/22 History mL) subcutaneous pen (Basaglar KwikPen U-100 Insulin) insulin lispro 100 unit/mL 3 - 12 unit subcut TID 06/10/22 06/10/22 History subcutaneous pen (Humalog KwikPen (U-100) Insulin) pantoprazole 20 mg tablet,delayed 1 tab PO DAILY 06/10/22 06/10/22 History release Allergies Allergies Allergy/AdvReac Type Severity Reaction Status Date / Time No Known Allergies Allergy Verified 06/09/22 19:44 [No Known Allergies*] Mental Status Exam Mental Status Exam Narrative: adequately dressed and groomed. cooperative, no PMA/PMR. speech nml rate, amount, loudness, latency. somewhat flattened prosody. thoughts linear and logical. affect constricted, hypo-intense, non-labile. mood calm day. but 7 on a scale of zero to bad. endorses SI, hopelessness, racing thoughts. no HI/AVH. Assessment & Plan Assessment & Plan (1) JOSEPH (acute kidney injury): Status: Acute Code(s): N17.9 - Acute kidney failure, unspecified (2) Acute hyperglycemia: Status: Acute Code(s): R73.9 - Hyperglycemia, unspecified (3) Transaminitis: Status: Acute Code(s): R74.01 - Elevation of levels of liver transaminase levels (4) Acidosis, lactic: Status: Acute Code(s): E87.20 - Acidosis, unspecified (5) Adjustment disorder with mixed anxiety and depressed mood: Status: Acute Code(s): F43.23 - Adjustment disorder with mixed anxiety and depressed mood (6) Malingering: Status: Acute Code(s): Z76.5 - Malingerer [conscious simulation] Plan pt appears to have misled staff in the ED in order to obtain half-way, flip-flopping from suicidal to not to suicidal again. he is requesting help getting entitlements and SSDI. he has expressed no interest in actual mental health treatment. observe, attempt to engage in groups, assess needs, attempt to provide child protective services social worker or refer for such services. Patient educated on: substance abuse Reason for continued inpatient stay Substantial Risk for: rapid decompensation
[2022-06-11 20:59] VITALS: BP 107/66; PULSE 97; RESP 18; TEMP 36.7; O2SAT 100
[2022-06-11 21:17] LABS: Glucose, Whole Blood 243 mg/dL (60-115)
[2022-06-12] MEDS: Omeprazole 20 MG CAPSULE.DR PO (05:36)
[2022-06-12 05:38] LABS: Glucose, Whole Blood 301 mg/dL (60-115)
[2022-06-12] MEDS: Insulin Glargine,Hum.rec.anlog 100 UNIT/ML 10 ML VIAL 10 UNIT SUBCUT ×2 (08:27→21:29)
[2022-06-12] MEDS: Insulin Lispro 100 UNIT/ML 3 ML VIAL SUBCUT ×4 (09:20→21:30)
[2022-06-12] MEDS: Loperamide HCl 2 MG CAPSULE PO (09:21)
[2022-06-12] MEDS: Acetaminophen 325 MG TABLET 650 MG PO (09:21)
[2022-06-12 09:36] VITALS: BP 107/61; PULSE 98; RESP 16; TEMP 36.6; O2SAT 99
--- NOTE | 2022-06-12 12:21 | PC.NURSE ---
Dr. Xiong aware of high blood sugar. No additional insulin at this time. Retake POC in 30 min.
--- NOTE | 2022-06-12 12:35 | P.PNPSI_ITS ---
Subjective Subjective Date of Service: 06/12/22 Reason For Visit: depression with suicidal ideation Vital Signs (24Hr): homelessness. advantage of him 09:36 agrees to trial of Wellbutrin for depression. Diagnostics Vital Signs (24Hr): protien with diabetic diet. Mental Status Exam Mental Status Exam Narrative: 09:36
--- NOTE | 2022-06-12 12:35 | HO.PSYCHPN ---
Subjective Subjective Date of Service: 06/12/22 Reason For Visit: depression with suicidal ideation Interim History: Pt reports depression and is sad that he was kicked out of his cousins; he feels family is holding his past behaviors against him even thought he's changed (does not give specifics). Pt reports he has a little bit of SI now, feeling abandoned by his family and facing homelessness. shares Long hx of people taking advantage of him regarding medications, he was prescribed lexapro 20mg 05/25/22 however said it gave him diarrhea for 2 weeks so stopped; his of zoloft but not sure if helpful. agrees to trial of Wellbutrin for depression. discussed DM and A1C; pt says he's been eating a Keto diet for years to lower blood sugar; seems he could not understand that despite this, A1C is still very elevated. NOt sure about having diet changed since he's is not given enough protien with diabetic diet. Mental Status Exam Mental Status Exam Narrative: Pt is alert and oriented; behavior is cooperative, friendly, anxious; patient is not in distress; dressed in casual attire adequate hygiene; mood is described as depressed and affect congruent, anxious; eye contact appropriate; Speech is normal rate, volume and prosody and not pressured; no psychomotor agitation/retardation present; thought process is goal directed but concrete; Thought content is on hopelessness of situation, homeless, being taken advantage of; otherwise pertinent to relevant topics and without any delusional content, paranoid ideations or grandiosity; +SI; no HI; There is no evidence of perceptual disturbance. Patients insight and judgment are impaired. Diagnostics Vital Signs (24Hr): Vital Signs - 24 hr 06/11/22 20:59 06/12/22 09:36 Temperature 98.1 F 97.9 F Pulse Rate 97 98 Respiratory Rate 18 16 Blood Pressure 107/66 107/61 Pulse Oximetry 100 99 Oxygen Delivery Method Room Air Room Air BMI result Body Mass Index 20.3 Labs Results: 06/10/22 08:58 06/13/22 08:04 Labs: Laboratory Results - last 48 hr 06/10/22 06/10/22 06/10/22 12:32 13:28 17:00 POC Glucose 316 H 293 H 106 Estimat Average Glucose Hemoglobin A1c % Magnesium Triglycerides Cholesterol LDL Cholesterol, Calc HDL Cholesterol Vitamin B12 Folate TSH Free T4 06/10/22 06/10/2222 18:11 20:31 21:55 POC Glucose 116 H 366 H* 332 H Estimat Average Glucose Hemoglobin A1c % Magnesium Triglycerides Cholesterol LDL Cholesterol, Calc HDL Cholesterol Vitamin B12 Folate TSH Free T4 06/11/22 06/11/22 06/11/22 05:25 07:52 07:52 POC Glucose 179 H Estimat Average Glucose 269 Hemoglobin A1c % 11.0 Magnesium 2.1 Triglycerides 155 Cholesterol 229 LDL Cholesterol, Calc 134 HDL Cholesterol 64 Vitamin B12 Folate TSH 3.49 Free T4 1.10 06/11/22 06/11/22 06/11/22 07:52 08:51 12:37 POC Glucose 168 H 264 H Estimat Average Glucose Hemoglobin A1c % Magnesium Triglycerides Cholesterol LDL Cholesterol, Calc HDL Cholesterol Vitamin B12 421 Folate 8.2 TSH Free T4 06/11/22 06/11/22 06/12/22 17:11 21:13 05:34 POC Glucose 373 H* 243 H 301 H Estimat Average Glucose Hemoglobin A1c % Magnesium Triglycerides Cholesterol LDL Cholesterol, Calc HDL Cholesterol Vitamin B12 Folate TSH Free T4 06/12/22 06/12/22 06/12/22 08:22 11:20 12:14 POC Glucose 186 H 371 H* 285 H Estimat Average Glucose Hemoglobin A1c % Magnesium Triglycerides Cholesterol LDL Cholesterol, Calc HDL Cholesterol Vitamin B12 Folate TSH Free T4 Medications Medications Current Medications Acetaminophen (Acetaminophen 325 Mg Tablet) 650 mg PO Q6H PRN PRN Reason: Headache/Pain Mild Scale (1-3) Last Admin: 06/12/22 09:21 Dose: 650 mg Al Hydroxide/Mg Hydroxide (Magnesium Hydrox/Alum Hydrox 30 Ml Oral.Susp) 30 ml PO Q6H PRN PRN Reason: Heartburn/Nausea Insulin Glargine (Insulin Glargine,Hum.Rec.Anlog 100 Unit/Ml 10 Ml Vial) 10 unit SUBCUT BID [facility] Last Admin: 06/12/22 08:27 Dose: 10 unit Insulin Human Lispro (Insulin Lispro 100 Unit/Ml 3 Ml Vial) 0 unit SUBCUT QIDACHS [facility]; Protocol Last Admin: 06/12/22 11:36 Dose: 10 unit Loperamide HCl (Loperamide Hcl 2 Mg Capsule) 2 mg PO Q6H PRN PRN Reason: Diarrhea Last Admin: 06/12/22 09:21 Dose: 2 mg Magnesium Hydroxide (Milk Of Magnesia 30 Ml Oral.Susp) 30 ml PO DAILY PRN PRN Reason: Constipation Omeprazole (Omeprazole 20 Mg Capsule.Dr) 20 mg PO DAILY@0630 [facility] Last Admin: 06/12/22 05:36 Dose: 20 mg Trazodone HCl (Trazodone Hcl 50 Mg Tablet) 50 mg PO BEDTIME PRN PRN Reason: insomnia Last Admin: 06/11/22 22:56 Dose: 50 mg Allergies Allergies Allergy/AdvReac Type Severity Reaction Status Date / Time No Known Allergies Allergy Verified 06/09/22 19:44 [No Known Allergies*] Assessment & Plan Assessment & Plan (1) Adjustment disorder with mixed anxiety and depressed mood: Status: Acute Code(s): F43.23 - Adjustment disorder with mixed anxiety and depressed mood (2) JOSEPH (acute kidney injury): Status: Acute Code(s): N17.9 - Acute kidney failure, unspecified (3) Acute hyperglycemia: Status: Acute Code(s): R73.9 - Hyperglycemia, unspecified (4) Transaminitis: Status: Acute Code(s): R74.01 - Elevation of levels of liver transaminase levels (5) Acidosis, lactic: Status: Acute Code(s): E87.20 - Acidosis, unspecified (6) Malingering: Status: Acute Code(s): Z76.5 - Malingerer [conscious simulation] Plan pt appears to have misled staff in the ED in order to obtain halfway, flip-flopping from suicidal to not to suicidal again. he is requesting help getting entitlements and SSDI. he has expressed no interest in actual mental health treatment. observe, attempt to engage in groups, assess needs, attempt to provide social science research assistant or refer for such services. 06/12 depressed, a little bit of SI; psychosocial stressors upsetting. was orderd lexapro 20mg 05/25/22 however said it gave him diarrhea for 2 weeks so stopped; agrees to Wellbutrin PLAN: q15 CV START Wellbutrin XL 150mg daily for depression DM poorly controlled due to diet: discussed with dr. Saha who recommends increasing sliding scale units by 2 units starting for sugars at 201-250 ordering Diabetic diet (pt has poor compliance with diabetic eating) order BMP if sugars continue to be elevated increase Lantus to 15mg daily (and continue Lantus 10mg at bedtime) I spent minutes with the patient and/or on the patient floor today, greater than?50% of which was spent counseling/coordinating care. Reason for contiued inpatient stay Substantial Risk for: rapid decompensation
[2022-06-12 20:25] VITALS: BP 116/66; PULSE 105; RESP 16; TEMP 36.2; O2SAT 99
[2022-06-12] MEDS: traZODone HCL 50 MG TABLET PO ×2 (22:22→23:58)
[2022-06-13 02:11] LABS: Glucose, Whole Blood 364 mg/dL (60-115)
[2022-06-13] MEDS: Omeprazole 20 MG CAPSULE.DR PO (06:25)
[2022-06-13 08:15] VITALS: BP 117/74; PULSE 96; RESP 16; TEMP 36.3; O2SAT 96
[2022-06-13] MEDS: Insulin Glargine,Hum.rec.anlog 100 UNIT/ML 10 ML VIAL 10 UNIT SUBCUT ×2 (08:19→21:01)
[2022-06-13] MEDS: buPROPion HCl XL 150 MG TAB.ER.24H PO (08:22)
[2022-06-13 09:06] LABS: Anion Gap 19 (12-20); Blood Urea Nitrogen 36 mg/dL (9-16); Calcium 9.1 mg/dL (8.4-10.2); Carbon Dioxide 24 mmol/L (22-29); Chloride 98 mmol/L (96-108); Creatinine Clr Calc Pharmacy 74.7; Estimated Glomerular Filt Rate > 60; Glucose Random 345 mg/dL (60-115); Sodium 136 mmol/L (135-145)
[2022-06-13] MEDS: Insulin Lispro 100 UNIT/ML 3 ML VIAL SUBCUT ×4 (09:07→21:00)
--- NOTE | 2022-06-13 14:50 | PC.NURSE ---
Patient reported to staff he punched a wall yesterday following upset lunch came up wrong. Bruising to R 3rd knuckle, with edema noted. Dr. Xiong notified.
--- NOTE | 2022-06-13 15:24 | HO.PSYCHPN ---
Subjective Subjective Date of Service: 06/13/22 Reason For Visit: depression with suicidal ideation Interim History: Patient reports that his mood is a little better. He said he is not feeling so depressed. Sometimes he has suicidal thoughts when thinking about being discharged and homeless however he denies having a plan. He thinks that Wellbutrin may be helping and wants it left at current dose. Discussed patient's blood sugar and he agrees to increasing daytime Lantus. Patient did get frustrated today when his meal was incorrect and punched a wall though not very hard; he says it does not hurt and service writer examined and there is no tenderness on palpation and hand is fully functioning. Mental Status Exam Mental Status Exam Narrative: Pt is alert and oriented; behavior is cooperative, friendly, calm; patient is not in distress; dressed in casual attire adequate hygiene; mood is described as a little better and affect congruent, less anxious; eye contact appropriate; Speech is normal rate, volume and prosody and not pressured; no psychomotor agitation/retardation present; thought process is goal directed but concrete; Thought content is on trying to fight off hopelessness of situation, homelessness; otherwise pertinent to relevant topics and without any delusional content, paranoid ideations or grandiosity; intermittent SI but denies plan/intent; no HI; There is no evidence of perceptual disturbance. Patients insight and judgment are impaired but improving. Diagnostics Vital Signs (24Hr): Vital Signs - 24 hr 06/12/22 20:25 06/13/22 08:15 Temperature 97.1 F 97.4 F Pulse Rate 105 H 96 Respiratory Rate 16 16 Blood Pressure 116/66 117/74 Pulse Oximetry 99 96 Oxygen Delivery Method Room Air Room Air BMI result Body Mass Index 20.3 Labs Results: 06/10/22 08:58 06/13/22 08:04 Labs: Laboratory Results - last 48 hr 06/11/22 06/11/22 06/12/22 17:11 21:13 05:34 Sodium Potassium Chloride Carbon Dioxide Anion Gap BUN Creatinine Estim Creat Clear Calc Estimated GFR POC Glucose 373 H* 243 H 301 H Random Glucose Calcium 06/12/22 06/12/22 06/12/22 08:22 11:20 12:14 Sodium Potassium Chloride Carbon Dioxide Anion Gap BUN Creatinine Estim Creat Clear Calc Estimated GFR POC Glucose 186 H 371 H* 285 H Random Glucose Calcium 10/04/2606/12/22 06/13/22 18:08 21:09 02:05 Sodium Potassium Chloride Carbon Dioxide Anion Gap BUN Creatinine Estim Creat Clear Calc Estimated GFR POC Glucose 229 H 359 H* 364 H* Random Glucose Calcium 06/13/22 06/13/22 06/13/22 06:27 08:04 09:00 Sodium 136 Potassium 5.0 Chloride 98 Carbon Dioxide 24 Anion Gap 19 BUN 36 H D Creatinine 1.26 Estim Creat Clear Calc 74.7 Estimated GFR > 60 POC Glucose 184 H 350 H* Random Glucose 345 H D Calcium 9.1 06/13/22 13:04 Sodium Potassium Chloride Carbon Dioxide Anion Gap BUN Creatinine Estim Creat Clear Calc Estimated GFR POC Glucose 155 H Random Glucose Calcium Medications Medications Current Medications Acetaminophen (Acetaminophen 325 Mg Tablet) 650 mg PO Q6H PRN PRN Reason: Headache/Pain Mild Scale (1-3) Last Admin: 06/12/22 09:21 Dose: 650 mg Al Hydroxide/Mg Hydroxide (Magnesium Hydrox/Alum Hydrox 30 Ml Oral.Susp) 30 ml PO Q6H PRN PRN Reason: Heartburn/Nausea Bupropion HCl (Bupropion Hcl Xl 150 Mg Tab.Er.24h) 150 mg PO DAILY [facility] Last Admin: 06/13/22 08:22 Dose: 150 mg Insulin Glargine (Insulin Glargine,Hum.Rec.Anlog 100 Unit/Ml 10 Ml Vial) 10 unit SUBCUT BEDTIME [facility] Insulin Glargine (Insulin Glargine,Hum.Rec.Anlog 100 Unit/Ml 10 Ml Vial) 15 unit SUBCUT DAILY [facility] Insulin Human Lispro (Insulin Lispro 100 Unit/Ml 3 Ml Vial) 0 unit SUBCUT QIDACHS [facility]; Protocol Last Admin: 06/13/22 13:07 Dose: 2 unit Loperamide HCl (Loperamide Hcl 2 Mg Capsule) 2 mg PO Q6H PRN PRN Reason: Diarrhea Last Admin: 06/12/22 09:21 Dose: 2 mg Magnesium Hydroxide (Milk Of Magnesia 30 Ml Oral.Susp) 30 ml PO DAILY PRN PRN Reason: Constipation Omeprazole (Omeprazole 20 Mg Capsule.Dr) 20 mg PO DAILY@0630 [facility] Last Admin: 06/13/22 06:25 Dose: 20 mg Trazodone HCl (Trazodone Hcl 50 Mg Tablet) 50 mg PO BEDTIME PRN PRN Reason: insomnia Last Admin: 06/12/22 23:58 Dose: 50 mg Trazodone HCl (Trazodone Hcl 50 Mg Tablet) 50 mg PO BEDTIME [facility] Last Admin: 06/12/22 22:22 Dose: 50 mg Allergies Allergies Allergy/AdvReac Type Severity Reaction Status Date / Time No Known Allergies Allergy Verified 06/09/22 19:44 [No Known Allergies*] Assessment & Plan Assessment & Plan (1) Adjustment disorder with mixed anxiety and depressed mood: Status: Acute Code(s): F43.23 - Adjustment disorder with mixed anxiety and depressed mood (2) JOSEPH (acute kidney injury): Status: Acute Code(s): N17.9 - Acute kidney failure, unspecified (3) Acute hyperglycemia: Status: Acute Code(s): R73.9 - Hyperglycemia, unspecified (4) Transaminitis: Status: Acute Code(s): R74.01 - Elevation of levels of liver transaminase levels (5) Acidosis, lactic: Status: Acute Code(s): E87.20 - Acidosis, unspecified (6) Malingering: Status: Acute Code(s): Z76.5 - Malingerer [conscious simulation] Plan pt appears to have misled staff in the ED in order to obtain jail, flip-flopping from suicidal to not to suicidal again. he is requesting help getting entitlements and SSDI. he has expressed no interest in actual mental health treatment. observe, attempt to engage in groups, assess needs, attempt to provide social group worker or refer for such services. 06/12 depressed, a little bit of SI; psychosocial stressors upsetting. was orderd lexapro 20mg 05/25/22 however said it gave him diarrhea for 2 weeks so stopped; agrees to Wellbutrin 06/13 patient reports his mood is a little bit better and though sometimes has SI, denies plans or intent. Feels Wellbutrin is helping. Agrees to increasing Lantus PLAN: q15 CV Continue Wellbutrin XL 150mg daily for depression Increase bedtime Lantus to 15 mg daily Who returned to regular diet since patient is diabetic diet left him without protein that he wanted DM poorly controlled due to diet: discussed with dr. Saha who recommends increasing sliding scale units by 2 units starting for sugars at 201-250 ordering Diabetic diet (pt has poor compliance with diabetic eating) order BMP if sugars continue to be elevated increase Lantus to 15mg daily (and continue Lantus 10mg at bedtime) I spent minutes with the patient and/or on the patient floor today, greater than?50% of which was spent counseling/coordinating care. Patient educated on: diagnosis, medication risk/benefits and medical condition Informed Consent: understands Reason for contiued inpatient stay Substantial Risk for: rapid decompensation
[2022-06-13 18:22] VITALS: BP 116/64; PULSE 98; RESP 16; TEMP 36.3; O2SAT 99
[2022-06-13] MEDS: Acetaminophen 325 MG TABLET 650 MG PO (19:57)
[2022-06-13] MEDS: traZODone HCL 50 MG TABLET PO (23:11)
[2022-06-14 05:18] LABS: Glucose, Whole Blood 347 mg/dL (60-115)
--- NOTE | 2022-06-14 06:05 | PC.NURSE ---
lower extremities-bilateral edema noted in legs at 0045. on rising at 0500 bilateral edema has decreased. great toe L foot was off colored with redness. report HX within last several months of having a FX toe. did come in the hospital with orthoepic shoe for L foot and sneaker for R. requested use of foot wear and issued.
[2022-06-14 08:39] LABS: Glucose, Whole Blood 406 mg/dL (60-115)
[2022-06-14 08:45] VITALS: BP 108/65; PULSE 106; RESP 16; TEMP 36.6; O2SAT 97
[2022-06-14] MEDS: Insulin Glargine,Hum.rec.anlog 100 UNIT/ML 10 ML VIAL 15 UNIT SUBCUT ×3 (08:59→21:00)
[2022-06-14] MEDS: Insulin Lispro 100 UNIT/ML 3 ML VIAL SUBCUT ×3 (08:59→20:56)
[2022-06-14] MEDS: Omeprazole 20 MG CAPSULE.DR PO (09:00)
[2022-06-14] MEDS: buPROPion HCl XL 150 MG TAB.ER.24H PO (09:00)
--- NOTE | 2022-06-14 10:45 | PC.NURSE ---
ll nursing documentation in this chart from 06/14/2022 0800am through 10:30 am was completed by Tahmina Ramon RN. I was loggied in in error as Jacquelyn Denny RN.
--- NOTE | 2022-06-14 10:53 | MHC.CLN ---
NUTRITION CONSULT FOR KETOGENIC DIET; NEEDS HELP GETTING KETO DIET . VISITED WITH PATIENT ON UNIT. EXPLAINED REASON FOR VISIT IS REPORT THAT HE WOULD LIKE A KETO DIET. ADVISED PATIENT THAT THIS CELL RELINER DOES NOT ENDORSE KETOGENIC DIET FOR HIM, BUT DIABETIC DIET APPROPRIATE. HE STATED THAT HAS BEEN FOLLOWING KETO DIET X 5 YEARS. THIS CELL RELINER PROVIDED AN ARTICLE FROM [employer] ABOUT KETO DIET AND FOODS. PATIENT ACCEPTED ARTICLE. PATIENT WITH DX DM AND A1C=11 ON 06/11. HIGH POC GLUCOSE VALUES. A1C AND POC SHOW POOR BLOOD GLUCOSE CONTROL. AGREES TO GLUCERNA TID. WILL PROVIDE ADDITIONAL 710 CALS, 30 G PROTEIN. SUPPLEMENT TO PROVIDE BALANCED NUTRITION. HAS HAD PRIOR MEDICAL ADVICE TO NOT FOLLOW KETO DIET. THIS CELL RELINER STATED TO PATIENT THAT DOES NOT ENDORSE KETO DET FOR HIM.
[2022-06-14 12:44] LABS: Glucose, Whole Blood 122 mg/dL (60-115)
--- NOTE | 2022-06-14 13:13 | HO.PSYCHPN ---
Subjective Subjective Date of Service: 06/14/22 Reason For Visit: depression with suicidal ideation Interim History: Late entry note for patient seen on 06/14 Patient reports that he is doing better and in a better mood. He says he still can get depressed and stressed when he thinks about being homeless and suicidal thoughts can intermittently come however he says he has no plans to act on it and they are just thoughts. He feels that his medication dose is good and wants to remain with. Patient also made a plan with nurse to keep a diary of all food consumed so he can get a better idea of his snacking and why his sugars are so high. He agrees to Lantus increased to 15 mg b.i.d. Mental Status Exam Mental Status Exam Narrative: Pt is alert and oriented; behavior is cooperative, friendly, calm; patient is not in distress; dressed in casual attire adequate hygiene; mood is described as a little better and affect congruent, less anxious; eye contact appropriate; Speech is normal rate, volume and prosody and not pressured; no psychomotor agitation/retardation present; thought process is goal directed but concrete; Thought content is on trying to fight off hopelessness of situation, homelessness; otherwise pertinent to relevant topics and without any delusional content, paranoid ideations or grandiosity; intermittent SI but denies plan/intent; no HI; There is no evidence of perceptual disturbance. Patients insight and judgment are impaired but improving. Diagnostics Vital Signs (24Hr): Vital Signs - 24 hr 06/14/22 20:45 Temperature 98.4 F Pulse Rate 104 H Respiratory Rate 18 Blood Pressure 126/68 Pulse Oximetry 98 Oxygen Delivery Method Room Air BMI result Body Mass Index 20.3 Labs Results: 06/10/22 08:58 06/13/22 08:04 Labs: Laboratory Results - last 48 hr 06/13/22 06/13/22 06/14/22 17:25 20:45 05:14 POC Glucose 287 H 407 H* 347 H 06/14/22 06/14/22 06/14/22 08:36 12:39 17:37 POC Glucose 406 H* 122 H 332 H 06/14/22 06/15/22 06/15/22 20:42 08:39 12:44 POC Glucose 277 H 200 H 297 H Medications Medications Current Medications Acetaminophen (Acetaminophen 325 Mg Tablet) 650 mg PO Q6H PRN PRN Reason: Headache/Pain Mild Scale (1-3) Last Admin: 06/15/22 06:37 Dose: 650 mg Al Hydroxide/Mg Hydroxide (Magnesium Hydrox/Alum Hydrox 30 Ml Oral.Susp) 30 ml PO Q6H PRN PRN Reason: Heartburn/Nausea Bupropion HCl (Bupropion Hcl Xl 150 Mg Tab.Er.24h) 150 mg PO DAILY [facility] Last Admin: 06/15/22 09:13 Dose: 150 mg Glucose (Glucose Gel 15 Gm Gel..Gram.) 15 gm PO Q15M PRN PRN Reason: per Hypoglycemia Standing Ord. Insulin Glargine (Insulin Glargine,Hum.Rec.Anlog 100 Unit/Ml 10 Ml Vial) 15 unit SUBCUT DAILY [facility] Last Admin: 06/15/22 09:11 Dose: 15 unit Insulin Glargine (Insulin Glargine,Hum.Rec.Anlog 100 Unit/Ml 10 Ml Vial) 15 unit SUBCUT BEDTIME [facility] Last Admin: 06/14/22 21:00 Dose: 15 unit Insulin Human Lispro (Insulin Lispro 100 Unit/Ml 3 Ml Vial) 0 unit SUBCUT QIDACHS [facility]; Protocol Last Admin: 06/15/22 13:03 Dose: 8 unit Loperamide HCl (Loperamide Hcl 2 Mg Capsule) 2 mg PO Q6H PRN PRN Reason: Diarrhea Last Admin: 06/12/22 09:21 Dose: 2 mg Magnesium Hydroxide (Milk Of Magnesia 30 Ml Oral.Susp) 30 ml PO DAILY PRN PRN Reason: Constipation Omeprazole (Omeprazole 20 Mg Capsule.Dr) 20 mg PO DAILY@0630 [facility] Last Admin: 06/15/22 06:38 Dose: 20 mg Trazodone HCl (Trazodone Hcl 50 Mg Tablet) 50 mg PO BEDTIME PRN PRN Reason: insomnia Last Admin: 06/12/22 23:58 Dose: 50 mg Trazodone HCl (Trazodone Hcl 50 Mg Tablet) 50 mg PO BEDTIME [facility] Last Admin: 06/14/22 20:44 Dose: 50 mg Allergies Allergies Allergy/AdvReac Type Severity Reaction Status Date / Time No Known Allergies Allergy Verified 06/09/22 19:44 [No Known Allergies*] Assessment & Plan Assessment & Plan (1) Adjustment disorder with mixed anxiety and depressed mood: Status: Acute Code(s): F43.23 - Adjustment disorder with mixed anxiety and depressed mood (2) JOSEPH (acute kidney injury): Status: Acute Code(s): N17.9 - Acute kidney failure, unspecified (3) Acute hyperglycemia: Status: Acute Code(s): R73.9 - Hyperglycemia, unspecified (4) Transaminitis: Status: Acute Code(s): R74.01 - Elevation of levels of liver transaminase levels (5) Acidosis, lactic: Status: Acute Code(s): E87.20 - Acidosis, unspecified (6) Malingering: Status: Acute Code(s): Z76.5 - Malingerer [conscious simulation] Plan pt appears to have misled staff in the ED in order to obtain jail, flip-flopping from suicidal to not to suicidal again. he is requesting help getting entitlements and SSDI. he has expressed no interest in actual mental health treatment. observe, attempt to engage in groups, assess needs, attempt to provide social work associate or refer for such services. 06/12 depressed, a little bit of SI; psychosocial stressors upsetting. was orderd lexapro 20mg 05/25/22 however said it gave him diarrhea for 2 weeks so stopped; agrees to Wellbutrin 06/13 patient reports his mood is a little bit better and though sometimes has SI, denies plans or intent. Feels Wellbutrin is helping. Agrees to increasing Lantus 06/14 patient reports mood is a little better, still some SI but less so and no plans or intent. Working on getting his eating under control as his diabetes is currently poorly controlled PLAN: q15 CV Continue Wellbutrin XL 150mg daily for depression Increase to Lantus to 15 mg b.i.d. for continued elevated blood sugars Who returned to regular diet since patient is diabetic diet left him without protein that he wanted; nutritional list will had jiménez to order DM poorly controlled due to diet: discussed with dr. Saha who recommends increasing sliding scale units by 2 units starting for sugars at 201-250 ordering Diabetic diet (pt has poor compliance with diabetic eating) order BMP if sugars continue to be elevated increase Lantus to 15mg daily (and continue Lantus 10mg at bedtime) I spent minutes with the patient and/or on the patient floor today, greater than?50% of which was spent counseling/coordinating care. Patient educated on: diagnosis, medication risk/benefits and medical condition Informed Consent: understands Reason for contiued inpatient stay Substantial Risk for: stable for discharge
[2022-06-14 17:42] LABS: Glucose, Whole Blood 332 mg/dL (60-115)
[2022-06-14] MEDS: traZODone HCL 50 MG TABLET PO (20:44)
[2022-06-14 20:45] VITALS: BP 126/68; PULSE 104; RESP 18; TEMP 36.9; O2SAT 98
[2022-06-14 20:53] LABS: Glucose, Whole Blood 277 mg/dL (60-115)
[2022-06-15] MEDS: Acetaminophen 325 MG TABLET 650 MG PO (06:37)
[2022-06-15] MEDS: Omeprazole 20 MG CAPSULE.DR PO (06:38)
[2022-06-15 08:49] LABS: Glucose, Whole Blood 200 mg/dL (60-115)
[2022-06-15 09:00] VITALS: BP 136/91; PULSE 95; RESP 16; TEMP 36.6; O2SAT 99
[2022-06-15] MEDS: Insulin Lispro 100 UNIT/ML 3 ML VIAL SUBCUT ×4 (09:11→20:54)
[2022-06-15] MEDS: Insulin Glargine,Hum.rec.anlog 100 UNIT/ML 10 ML VIAL 15 UNIT SUBCUT ×2 (09:11→20:54)
[2022-06-15] MEDS: buPROPion HCl XL 150 MG TAB.ER.24H PO (09:13)
[2022-06-15 12:48] LABS: Glucose, Whole Blood 297 mg/dL (60-115)
--- NOTE | 2022-06-15 15:27 | P.PNPSI_ITS ---
Subjective Subjective Date of Service: 06/15/22 Reason For Visit: depression with suicidal ideation Subjective Notes: Conditional Voluntary Interim History: I'm doing pretty good but when going through tough times I don't know what to do and I feel like dying, sometimes I OD on insulin. No VH/AH. Pt reports sleeping well. Pt reports hx of intentional OD on insuline but reports he quickly calls for help as he tends to be impulsive. Pt states that if he gets so cial security money he wouldn't have to worry much and his quality of life would be better. Pt states that he would like to go to senior care once stable. He denies SI/HI. He denies hx of substance use. Pt reports sleep was fair as he stayed up late. Medication Compliance: Yes Mental Status Exam Mental Status Exam Narrative: Appearance: casually groomed, fair hygiene in NAD Behavior:cooperative psychomotor: no agitation or retardation noted Speech: clear, normal rate/rhythm/volume, spontaneous Thought process: linear Thought content: no s/s of psychosis, looking for someone to fill out disability form Mood: okay Affect: congruent SI:appears conditional to someone completing disability form HI:none VH/AH: none Delusions:none Insight/judgment:poor x 2. Memory/cog: alert, oriented x 3. grossly intact to conversational testing. Diagnostics Vital Signs (24Hr): Vital Signs - 24 hr 06/14/22 20:45 Temperature 98.4 F Pulse Rate 104 H Respiratory Rate 18 Blood Pressure 126/68 Pulse Oximetry 98 Oxygen Delivery Method Room Air BMI result Body Mass Index 20.3 Labs Results: 06/10/22 08:58 06/13/22 08:04 Labs: Laboratory Results - last 48 hr 06/13/22 06/13/22 06/14/22 17:25 20:45 05:14 POC Glucose 287 H 407 H* 347 H 06/14/22 06/14/22 06/14/22 08:36 12:39 17:37 POC Glucose 406 H* 122 H 332 H 06/14/22 06/15/22 06/15/22 20:42 08:39 12:44 POC Glucose 277 H 200 H 297 H Medications Medications Current Medications Acetaminophen (Acetaminophen 325 Mg Tablet) 650 mg PO Q6H PRN PRN Reason: Headache/Pain Mild Scale (1-3) Last Admin: 06/15/22 06:37 Dose: 650 mg Al Hydroxide/Mg Hydroxide (Magnesium Hydrox/Alum Hydrox 30 Ml Oral.Susp) 30 ml PO Q6H PRN PRN Reason: Heartburn/Nausea Bupropion HCl (Bupropion Hcl Xl 150 Mg Tab.Er.24h) 150 mg PO DAILY [facility] Last Admin: 06/15/22 09:13 Dose: 150 mg Glucose (Glucose Gel 15 Gm Gel..Gram.) 15 gm PO Q15M PRN PRN Reason: per Hypoglycemia Standing Ord. Insulin Glargine (Insulin Glargine,Hum.Rec.Anlog 100 Unit/Ml 10 Ml Vial) 15 unit SUBCUT DAILY [facility] Last Admin: 06/15/22 09:11 Dose: 15 unit Insulin Glargine (Insulin Glargine,Hum.Rec.Anlog 100 Unit/Ml 10 Ml Vial) 15 unit SUBCUT BEDTIME [facility] Last Admin: 06/14/22 21:00 Dose: 15 unit Insulin Human Lispro (Insulin Lispro 100 Unit/Ml 3 Ml Vial) 0 unit SUBCUT QIDACHS [facility]; Protocol Last Admin: 06/15/22 13:03 Dose: 8 unit Loperamide HCl (Loperamide Hcl 2 Mg Capsule) 2 mg PO Q6H PRN PRN Reason: Diarrhea Last Admin: 06/12/22 09:21 Dose: 2 mg Magnesium Hydroxide (Milk Of Magnesia 30 Ml Oral.Susp) 30 ml PO DAILY PRN PRN Reason: Constipation Omeprazole (Omeprazole 20 Mg Capsule.Dr) 20 mg PO DAILY@0630 [facility] Last Admin: 06/15/22 06:38 Dose: 20 mg Trazodone HCl (Trazodone Hcl 50 Mg Tablet) 50 mg PO BEDTIME PRN PRN Reason: insomnia Last Admin: 06/12/22 23:58 Dose: 50 mg Trazodone HCl (Trazodone Hcl 50 Mg Tablet) 50 mg PO BEDTIME [facility] Last Admin: 06/14/22 20:44 Dose: 50 mg Allergies Allergies Allergy/AdvReac Type Severity Reaction Status Date / Time No Known Allergies Allergy Verified 06/09/22 19:44 [No Known Allergies*] Assessment & Plan Assessment & Plan (1) Adjustment disorder with mixed anxiety and depressed mood: Status: Acute Code(s): F43.23 - Adjustment disorder with mixed anxiety and depressed mood (2) JOSEPH (acute kidney injury): Status: Acute Code(s): N17.9 - Acute kidney failure, unspecified (3) Acute hyperglycemia: Status: Acute Code(s): R73.9 - Hyperglycemia, unspecified (4) Transaminitis: Status: Acute Code(s): R74.01 - Elevation of levels of liver transaminase levels (5) Acidosis, lactic: Status: Acute Code(s): E87.20 - Acidosis, unspecified (6) Malingering: Status: Acute Code(s): Z76.5 - Malingerer [conscious simulation] Plan pt appears to have misled staff in the ED in order to obtain senior care, flip- flopping from suicidal to not to suicidal again. he is requesting help getting entitlements and SSDI. he has expressed no interest in actual mental health treatment. observe, attempt to engage in groups, assess needs, attempt to provide social media executive or refer for such services. 06/12 depressed, a little bit of SI; psychosocial stressors upsetting. was orderd lexapro 20mg 05/25/22 however said it gave him diarrhea for 2 weeks so stopped; agrees to Wellbutrin 06/13 patient reports his mood is a little bit better and though sometimes has SI, denies plans or intent. Feels Wellbutrin is helping. Agrees to increasing Lantus 06/14 patient reports mood is a little better, still some SI but less so and no plans or intent. Working on getting his eating under control as his diabetes is currently poorly controlled PLAN: q15 CV Continue Wellbutrin XL 150mg daily for depression Increase to Lantus to 15 mg b.i.d. for continued elevated blood sugars Who returned to regular diet since patient is diabetic diet left him without protein that he wanted; nutritional list will had jiménez to order DM poorly controlled due to diet: discussed with dr. Saha who recommends increasing sliding scale units by 2 units starting for sugars at 201-250 ordering Diabetic diet (pt has poor compliance with diabetic eating) order BMP if sugars continue to be elevated increase Lantus to 15mg daily (and continue Lantus 10mg at bedtime) 06/15 continue current tx. I spent minutes with the patient and/or on the patient floor today, greater than?50% of which was spent counseling/coordinating care. Reason for contiued inpatient stay Substantial Risk for: harm to self
[2022-06-15 17:57] LABS: Glucose, Whole Blood 157 mg/dL (60-115)
--- NOTE | 2022-06-15 18:35 | PC.NURSE ---
Patient declines flu shot.
[2022-06-15 20:46] LABS: Glucose, Whole Blood 260 mg/dL (60-115)
[2022-06-15 21:09] VITALS: BP 152/82; PULSE 104; RESP 16; TEMP 36.6; O2SAT 98
[2022-06-15] MEDS: traZODone HCL 50 MG TABLET PO (22:58)
[2022-06-16 04:25] LABS: Glucose, Whole Blood 194 mg/dL (60-115)
[2022-06-16] MEDS: Omeprazole 20 MG CAPSULE.DR PO (05:11)
[2022-06-16 08:25] VITALS: BP 137/93; PULSE 101; RESP 16; TEMP 36.6; O2SAT 99
[2022-06-16] MEDS: buPROPion HCl XL 150 MG TAB.ER.24H PO (08:30)
[2022-06-16] MEDS: Insulin Lispro 100 UNIT/ML 3 ML VIAL SUBCUT ×3 (08:30→22:02)
[2022-06-16] MEDS: Insulin Glargine,Hum.rec.anlog 100 UNIT/ML 10 ML VIAL 15 UNIT SUBCUT ×2 (08:35→22:04)
[2022-06-16 08:40] LABS: Glucose, Whole Blood 330 mg/dL (60-115)
[2022-06-16 12:56] LABS: Glucose, Whole Blood 90 mg/dL (60-115)
--- NOTE | 2022-06-16 13:55 | P.PNPSI_ITS ---
Subjective Subjective Date of Service: 06/16/22 Reason For Visit: depression with suicidal ideation Subjective Notes: Conditional Voluntary Interim History: Pt reports feeling better in that he is not SI/HI. He reports sleeping well. He reports he plans to follow up PCP and manager it security. He reports he plans to follow through with disability form and application. He reports he can stay at friend's house until he is able to get his own apartment. Pt visible on the unit, very social and bright with peers. Medication Compliance: Yes Side effects from medications: No Attending Groups: Yes Review of Systems Review of Systems Constitutional : No Weight loss, No Fever, No Chills, No Fatigue, No Malaise ENT/Mouth : No sore throat, No Rhinorrhea Eyes: No Eye Pain, No Swelling, No Redness Cardiovascular : No Chest Pain, No SOB, No Dyspnea on Exertion, No Orthopnea, No Edema, No Palpitations Respiratory : No Cough, No Sputum, No Wheezing Gastrointestinal : No Nausea, No Vomiting, No Diarrhea, No Constipation, No abdominal Pain, No Hematochezia, No Melena Genitourinary : No Dysuria, No Urinary Frequency, No Hematuria, Musculoskeletal : No joint pain, No Myalgias, No Joint Swelling Skin : No Skin Lesions, No rash Neuro : No Weakness, No Numbness, No Dizziness, No Headache Psych : + Anxiety/Panic, + Depression, + SI All other systems reviewed and are negative Yes all other systems are reviewed and are negative Mental Status Exam Mental Status Exam Narrative: Appearance: casually groomed, fair hygiene in NAD Behavior:cooperative psychomotor: no agitation or retardation noted Speech: clear, normal rate/rhythm/volume, spontaneous Thought process: linear Thought content: no s/s of psychosis, looking for someone to fill out disability form Mood: okay Affect: congruent SI:appears conditional to someone completing disability form HI:none VH/AH: none Delusions:none Insight/judgment:poor x 2. Memory/cog: alert, oriented x 3. grossly intact to conversational testing. Diagnostics Vital Signs (24Hr): Vital Signs - 24 hr 06/15/22 21:09 Temperature 97.9 F Pulse Rate 104 H Respiratory Rate 16 Blood Pressure 152/82 H Pulse Oximetry 98 Oxygen Delivery Method Room Air BMI result Body Mass Index 20.3 Labs Results: 06/10/22 08:58 06/13/22 08:04 Labs: Laboratory Results - last 48 hr 06/14/22 06/14/22 06/15/22 17:37 20:42 08:39 POC Glucose 332 H 277 H 200 H 06/15/22 06/15/22 06/15/22 12:44 17:53 20:41 POC Glucose 297 H 157 H 260 H 06/16/22 06/16/22 06/16/22 04:20 08:27 12:53 POC Glucose 194 H 330 H 90 Medications Medications Current Medications Acetaminophen (Acetaminophen 325 Mg Tablet) 650 mg PO Q6H PRN PRN Reason: Headache/Pain Mild Scale (1-3) Last Admin: 06/15/22 06:37 Dose: 650 mg Al Hydroxide/Mg Hydroxide (Magnesium Hydrox/Alum Hydrox 30 Ml Oral.Susp) 30 ml PO Q6H PRN PRN Reason: Heartburn/Nausea Bupropion HCl (Bupropion Hcl Xl 150 Mg Tab.Er.24h) 150 mg PO DAILY [facility] Last Admin: 06/16/22 08:30 Dose: 150 mg Glucose (Glucose Gel 15 Gm Gel..Gram.) 15 gm PO Q15M PRN PRN Reason: per Hypoglycemia Standing Ord. Insulin Glargine (Insulin Glargine,Hum.Rec.Anlog 100 Unit/Ml 10 Ml Vial) 15 unit SUBCUT DAILY [facility] Last Admin: 06/16/22 08:35 Dose: 15 unit Insulin Glargine (Insulin Glargine,Hum.Rec.Anlog 100 Unit/Ml 10 Ml Vial) 15 unit SUBCUT BEDTIME [facility] Last Admin: 06/15/22 20:54 Dose: 15 unit Insulin Human Lispro (Insulin Lispro 100 Unit/Ml 3 Ml Vial) 0 unit SUBCUT QIDACHS [facility]; Protocol Last Admin: 06/16/22 13:06 Dose: Not Given Loperamide HCl (Loperamide Hcl 2 Mg Capsule) 2 mg PO Q6H PRN PRN Reason: Diarrhea Last Admin: 06/12/22 09:21 Dose: 2 mg Magnesium Hydroxide (Milk Of Magnesia 30 Ml Oral.Susp) 30 ml PO DAILY PRN PRN Reason: Constipation Omeprazole (Omeprazole 20 Mg Capsule.Dr) 20 mg PO DAILY@0630 [facility] Last Admin: 06/16/22 05:11 Dose: 20 mg Trazodone HCl (Trazodone Hcl 50 Mg Tablet) 50 mg PO BEDTIME PRN PRN Reason: insomnia Last Admin: 06/12/22 23:58 Dose: 50 mg Trazodone HCl (Trazodone Hcl 50 Mg Tablet) 50 mg PO BEDTIME [facility] Last Admin: 06/15/22 22:58 Dose: 50 mg Allergies Allergies Allergy/AdvReac Type Severity Reaction Status Date / Time No Known Allergies Allergy Verified 06/09/22 19:44 [No Known Allergies*] Assessment & Plan Assessment & Plan (1) Adjustment disorder with mixed anxiety and depressed mood: Status: Acute Code(s): F43.23 - Adjustment disorder with mixed anxiety and depressed mood (2) JOSEPH (acute kidney injury): Status: Acute Code(s): N17.9 - Acute kidney failure, unspecified (3) Acute hyperglycemia: Status: Acute Code(s): R73.9 - Hyperglycemia, unspecified (4) Transaminitis: Status: Acute Code(s): R74.01 - Elevation of levels of liver transaminase levels (5) Acidosis, lactic: Status: Acute Code(s): E87.20 - Acidosis, unspecified (6) Malingering: Status: Acute Code(s): Z76.5 - Malingerer [conscious simulation] Plan pt appears to have misled staff in the ED in order to obtain half-way, flip- flopping from suicidal to not to suicidal again. he is requesting help getting entitlements and SSDI. he has expressed no interest in actual mental health treatment. observe, attempt to engage in groups, assess needs, attempt to provide social services designee or refer for such services. 06/12 depressed, a little bit of SI; psychosocial stressors upsetting. was orderd lexapro 20mg 05/25/22 however said it gave him diarrhea for 2 weeks so stopped; agrees to Wellbutrin 06/13 patient reports his mood is a little bit better and though sometimes has SI, denies plans or intent. Feels Wellbutrin is helping. Agrees to increasing Lantus 06/14 patient reports mood is a little better, still some SI but less so and no plans or intent. Working on getting his eating under control as his diabetes is currently poorly controlled PLAN: q15 CV Continue Wellbutrin XL 150mg daily for depression Increase to Lantus to 15 mg b.i.d. for continued elevated blood sugars Who returned to regular diet since patient is diabetic diet left him without protein that he wanted; nutritional list will had jiménez to order DM poorly controlled due to diet: discussed with dr. Saha who recommends increasing sliding scale units by 2 units starting for sugars at 201-250 ordering Diabetic diet (pt has poor compliance with diabetic eating) order BMP if sugars continue to be elevated increase Lantus to 15mg daily (and continue Lantus 10mg at bedtime) 06/15 continue current tx. 06/16 continue tx. d/c tomorrow. I spent minutes with the patient and/or on the patient floor today, greater than?50% of which was spent counseling/coordinating care. Reason for contiued inpatient stay Substantial Risk for: stable for discharge
[2022-06-16 14:20] LABS: COVID-19 Test Negative (Negative); IDNOW Serial# 16C4AD1C
[2022-06-16 15:33] LABS: Alanine Aminotransferase 115 U/L (0-40); Albumin Level 4.3 g/dL (3.5-5.0); Alkaline Phosphatase 138 U/L (39-117); Anion Gap 18 (12-20); Aspartate Amino Transferase 216 U/L (5-37); Bilirubin Total 0.2 mg/dL (0.0-1.0); Blood Urea Nitrogen 28 mg/dL (9-16); Calcium 9.2 mg/dL (8.4-10.2); Carbon Dioxide 25 mmol/L (22-29); Chloride 98 mmol/L (96-108); Estimated Glomerular Filt Rate > 60; Glucose Random 343 mg/dL (60-115); Sodium 136 mmol/L (135-145); Total Protein 7.2 g/dL (6.5-8.0)
[2022-06-16 17:56] LABS: Glucose, Whole Blood 221 mg/dL (60-115)
[2022-06-16 20:40] VITALS: BP 134/86; PULSE 102; RESP 16; TEMP 36.6; O2SAT 98
[2022-06-16 21:48] LABS: Glucose, Whole Blood 211 mg/dL (60-115)
[2022-06-17] MEDS: traZODone HCL 50 MG TABLET PO (02:05)
[2022-06-17] MEDS: Omeprazole 20 MG CAPSULE.DR PO (05:15)
[2022-06-17 07:00] VITALS: BMI 21.8
[2022-06-17] MEDS: Insulin Lispro 100 UNIT/ML 3 ML VIAL SUBCUT ×2 (08:59→13:13)
[2022-06-17] MEDS: Insulin Glargine,Hum.rec.anlog 100 UNIT/ML 10 ML VIAL 15 UNIT SUBCUT (09:00)
[2022-06-17 09:04] LABS: Glucose, Whole Blood 416 mg/dL (60-115)
[2022-06-17 09:28] VITALS: BP 119/82; PULSE 104; RESP 20; TEMP 36.3; O2SAT 97
[2022-06-17] MEDS: Acetaminophen 325 MG TABLET 650 MG PO (09:30)
[2022-06-17] MEDS: buPROPion HCl XL 150 MG TAB.ER.24H PO (09:30)
--- NOTE | 2022-06-17 10:33 | P.DS_ITS ---
DS: Providers Provider Date of Service: 06/17/22 Date of admission: 06/10/22 18:47 Primary care physician: None Physician DS: Diagnosis Discharge Diagnosis (1) Adjustment disorder with mixed anxiety and depressed mood: Status: Acute (2) JOSEPH (acute kidney injury): Status: Acute (3) Acute hyperglycemia: Status: Acute (4) Transaminitis: Status: Acute DS: Medications Discharge Medications Home Medications: Home Medications Medication Instructions Recorded Confirmed insulin lispro 100 unit/mL 3 - 12 unit subcut TID 06/10/22 06/10/22 subcutaneous pen (Humalog KwikPen (U-100) Insulin) pantoprazole 20 mg tablet,delayed 1 tab PO DAILY 06/10/22 06/10/22 release Previous Rx's Medication Instructions Recorded bupropion HCl 150 mg 24 hr tablet, 150 mg PO DAILY #30 tabs 06/17/22 extended release insulin glargine 100 unit/mL 15 unit (0.15 mL) subcut BEDTIME 06/17/22 subcutaneous solution (Lantus #10 mL U-100 Insulin) insulin glargine 100 unit/mL 15 unit (0.15 mL) subcut DAILY #10 06/17/22 subcutaneous solution (Lantus mL U-100 Insulin) trazodone 100 mg tablet 100 mg PO BEDTIME PRN insomnia #30 06/17/22 tabs Mental Status Exam Mental Status Exam Narrative: Appearance: casually groomed, fair hygiene in NAD Behavior:cooperative psychomotor: no agitation or retardation noted Speech: clear, normal rate/rhythm/volume, spontaneous Thought process: linear Thought content: no s/s of psychosis, looking for someone to fill out disability form Mood: okay Affect: congruent SI:appears conditional to someone completing disability form HI:none VH/AH: none Delusions:none Insight/judgment:poor x 2. Memory/cog: alert, oriented x 3. grossly intact to conversational testing. Data Data Completed and Pending Completed studies during hospitalization [Text1]: 06/10/22 06/10/22 06/10/22 11:40 12:32 13:28 Sodium Potassium Chloride Carbon Dioxide Anion Gap BUN Creatinine Estim Creat Clear Calc Estimated GFR POC Glucose 302 H 316 H 293 H Random Glucose Estimat Average Glucose Hemoglobin A1c % Calcium Magnesium Total Bilirubin AST ALT Alkaline Phosphatase Total Protein Albumin Triglycerides Cholesterol LDL Cholesterol, Calc HDL Cholesterol Vitamin B12 Folate TSH Free T4 COVID-19 ([facility]) COVID-19 Clin Com 06/10/22 06/10/22 06/10/22 17:00 18:11 20:31 Sodium Potassium Chloride Carbon Dioxide Anion Gap BUN Creatinine Estim Creat Clear Calc Estimated GFR POC Glucose 106 116 H 366 H* Random Glucose Estimat Average Glucose Hemoglobin A1c % Calcium Magnesium Total Bilirubin AST ALT Alkaline Phosphatase Total Protein Albumin Triglycerides Cholesterol LDL Cholesterol, Calc HDL Cholesterol Vitamin B12 Folate TSH Free T4 COVID-19 ([facility]) COVID-19 Clin Com 06/10/22 06/11/22 06/11/22 21:55 05:25 07:52 Sodium Potassium Chloride Carbon Dioxide Anion Gap BUN Creatinine Estim Creat Clear Calc Estimated GFR POC Glucose 332 H 179 H Random Glucose Estimat Average Glucose 269 Hemoglobin A1c % 11.0 Calcium Magnesium Total Bilirubin AST ALT Alkaline Phosphatase Total Protein Albumin Triglycerides Cholesterol LDL Cholesterol, Calc HDL Cholesterol Vitamin B12 Folate TSH Free T4 COVID-19 ([facility]) COVID- [employer] 06/11/22 06/11/22 06/11/22 07:52 07:52 08:51 Sodium Potassium Chloride Carbon Dioxide Anion Gap BUN Creatinine Estim Creat Clear Calc Estimated GFR POC Glucose 168 H Random Glucose Estimat Average Glucose Hemoglobin A1c % Calcium Magnesium 2.1 Total Bilirubin AST ALT Alkaline Phosphatase Total Protein Albumin Triglycerides 155 Cholesterol 229 LDL Cholesterol, Calc 134 HDL Cholesterol 64 Vitamin B12 421 Folate 8.2 TSH 3.49 Free T4 1.10 COVID-19 ([facility]) COVID-19 Clin Com 06/11/22 06/11/22 06/11/22 12:37 17:11 21:13 Sodium Potassium Chloride Carbon Dioxide Anion Gap BUN Creatinine Estim Creat Clear Calc Estimated GFR POC Glucose 264 H 373 H* 243 H Random Glucose Estimat Average Glucose Hemoglobin A1c % Calcium Magnesium Total Bilirubin AST ALT Alkaline Phosphatase Total Protein Albumin Triglycerides Cholesterol LDL Cholesterol, Calc HDL Cholesterol Vitamin B12 Folate TSH Free T4 COVID-19 ([facility]) COVID-19 Clin Com 06/12/22 06/12/22 06/12/22 05:34 08:22 11:20 Sodium Potassium Chloride Carbon Dioxide Anion Gap BUN Creatinine Estim Creat Clear Calc Estimated GFR POC Glucose 301 H 186 H 371 H* Random Glucose Estimat Average Glucose Hemoglobin A1c % Calcium Magnesium Total Bilirubin AST ALT Alkaline Phosphatase Total Protein Albumin Triglycerides Cholesterol LDL Cholesterol, Calc HDL Cholesterol Vitamin B12 Folate TSH Free T4 COVID-19 ([facility]) COVID-19 Clin Com 06/12/22 06/12/22 06/12/22 12:14 18:08 21:09 Sodium Potassium Chloride Carbon Dioxide Anion Gap BUN Creatinine Estim Creat Clear Calc Estimated GFR POC Glucose 285 H 229 H 359 H* Random Glucose Estimat Average Glucose Hemoglobin A1c % Calcium Magnesium Total Bilirubin AST ALT Alkaline Phosphatase Total Protein Albumin Triglycerides Cholesterol LDL Cholesterol, Calc HDL Cholesterol Vitamin B12 Folate TSH Free T4 COVID-19 ([facility]) COVID-19 Clin Com 06/13/22 06/13/22 06/13/22 02:05 06:27 08:04 Sodium 136 Potassium 5.0 Chloride 98 Carbon Dioxide 24 Anion Gap 19 BUN 36 H D Creatinine 1.26 Estim Creat Clear Calc 74.7 Estimated GFR > 60 POC Glucose 364 H* 184 H Random Glucose 345 H D Estimat Average Glucose Hemoglobin A1c % Calcium 9.1 Magnesium Total Bilirubin AST ALT Alkaline Phosphatase Total Protein Albumin Triglycerides Cholesterol LDL Cholesterol, Calc HDL Cholesterol Vitamin B12 Folate TSH Free T4 COVID-19 ([facility]) COVID-19 Clin Com 06/13/22 06/13/22 06/13/22 09:00 13:04 17:25 Sodium Potassium Chloride Carbon Dioxide Anion Gap BUN Creatinine Estim Creat Clear Calc Estimated GFR POC Glucose 350 H* 155 H 287 H Random Glucose Estimat Average Glucose Hemoglobin A1c % Calcium Magnesium Total Bilirubin AST ALT Alkaline Phosphatase Total Protein Albumin Triglycerides Cholesterol LDL Cholesterol, Calc HDL Cholesterol Vitamin B12 Folate TSH Free T4 COVID-19 ([facility]) COVID-19 Clin Com 06/13/22 06/14/22 06/14/22 20:45 05:14 08:36 Sodium Potassium Chloride Carbon Dioxide Anion Gap BUN Creatinine Estim Creat Clear Calc Estimated GFR POC Glucose 407 H* 347 H 406 H* Random Glucose Estimat Average Glucose Hemoglobin A1c % Calcium Magnesium Total Bilirubin AST ALT Alkaline Phosphatase Total Protein Albumin Triglycerides Cholesterol LDL Cholesterol, Calc HDL Cholesterol Vitamin B12 Folate TSH Free T4 COVID-19 ([facility]) COVID-19 Clin Com 06/14/22 06/14/22 06/14/22 12:39 17:37 20:42 Sodium Potassium Chloride Carbon Dioxide Anion Gap BUN Creatinine Estim Creat Clear Calc Estimated GFR POC Glucose 122 H 332 H 277 H Random Glucose Estimat Average Glucose Hemoglobin A1c % Calcium Magnesium Total Bilirubin AST ALT Alkaline Phosphatase Total Protein Albumin Triglycerides Cholesterol LDL Cholesterol, Calc HDL Cholesterol Vitamin B12 Folate TSH Free T4 COVID-19 ([facility]) COVID-19 Clin Com 06/15/22 06/15/22 06/15/22 08:39 12:44 17:53 Sodium Potassium Chloride Carbon Dioxide Anion Gap BUN Creatinine Estim Creat Clear Calc Estimated GFR POC Glucose 200 H 297 H 157 H Random Glucose Estimat Average Glucose Hemoglobin A1c % Calcium Magnesium Total Bilirubin AST ALT Alkaline Phosphatase Total Protein Albumin Triglycerides Cholesterol LDL Cholesterol, Calc HDL Cholesterol Vitamin B12 Folate TSH Free T4 COVID-19 ([facility]) COVID-19 Clin [facility] 06/15/22 06/16/22 06/16/22 20:41 04:20 08:27 Sodium Potassium Chloride Carbon Dioxide Anion Gap BUN Creatinine Estim Creat Clear Calc Estimated GFR POC Glucose 260 H 194 H 330 H Random Glucose Estimat Average Glucose Hemoglobin A1c % Calcium Magnesium Total Bilirubin AST ALT Alkaline Phosphatase Total Protein Albumin Triglycerides Cholesterol LDL Cholesterol, Calc HDL Cholesterol Vitamin B12 Folate TSH Free T4 COVID-19 ([facility]) COVID-19 [employer] 06/16/22 06/16/22 06/16/22 12:53 13:05 14:54 Sodium 136 Potassium 5.0 Chloride 98 Carbon Dioxide 25 Anion Gap 18 BUN 28 H Creatinine 1.29 Estim Creat Clear Calc 73.0 Estimated GFR > 60 POC Glucose 90 Random Glucose 343 H Estimat Average Glucose Hemoglobin A1c % Calcium 9.2 Magnesium Total Bilirubin 0.2 AST 216 H ALT 115 H Alkaline Phosphatase 138 H Total Protein 7.2 Albumin 4.3 Triglycerides Cholesterol LDL Cholesterol, Calc HDL Cholesterol Vitamin B12 Folate TSH Free T4 COVID-19 ([facility]) Negative COVID-19 [employer] See Note 06/16/22 06/16/22 06/17/22 17:53 21:44 08:54 Sodium Potassium Chloride Carbon Dioxide Anion Gap BUN Creatinine Estim Creat Clear Calc Estimated GFR POC Glucose 221 H 211 H 416 H* Random Glucose Estimat Average Glucose Hemoglobin A1c % Calcium Magnesium Total Bilirubin AST ALT Alkaline Phosphatase Total Protein Albumin Triglycerides Cholesterol LDL Cholesterol, Calc HDL Cholesterol Vitamin B12 Folate TSH Free T4 COVID-19 ([facility]) COVID-19 Clin Com 06/09/22 22:36 Blood - Venous Blood Culture - Final No growth after 5 days. 06/09/22 22:36 Blood - Venous Blood Culture - Final No growth after 5 days. DS: Summary Hospital Course Hospital Course: HPI: per crisis evaluation, pt self-presented to [facility] with c/o SI.? he denied SI at the time of the crisis evaluation, however, and c/o depression and anxiety due to situational stress (housing and finances).? onset was 06/09, day prior to presentation.? he presented with dysphoric, tearful, affect.? he stated his grandmother had urged him to go to the ED and the hospital would help him with housing if he was suicidal. ? pt was requesting discharge with referral to? therapy.? an hour after plan for discharge with outpt referrals was made, pt stated he no longer felt safe for discharge and informed staff that if he were discharged from the ED he would overdose on his insulin.? he then told staff he has had numerous inpt stays; one was at [facility] about 5 years ago, which was ultimately verified.? he was then referred for admission. on interview with on psych floor, pt reported he was kicked out of his cousin's house the day of his presentation to the ED.? he also said something about going back and forth between shelters in the time since he was kicked out of his cousin's house, which was confusing, because by the timeframe he presented he did not have any nights between his cousin's house and the ED.? he stated he is looking for entitlements and mcc.? he believes he has a mental illness which affects his ability to work and would like to document this and apply for SSDI.? he reported SI currently.? he stated he sleeps 2-3 hours nightly and is experiencing hopelessness.? he describes his concentration as poor.? he states his motivation and interest are adequate, his energy is OK, and his appetite is really good. ? he has no requests or hopes for the hospitalization aside from help getting entitlements/housing and documented as being psychiatrically disabled. Past Psychiatric History: reported long-standing h/o depression and h/o outpt Tx with psychiatry to crisis team. pt denied h/o SA to crisis team, only ideation to overdose on insulin. ? reports more than 5 hosps to [facility] [place] ago in [place].? states had 4 in [place] and one at [facility] about 5 yrs ago. reports he has attempted suicide via overdose twice in [place]. he denies any h/o SIB. states he has not had any outpt Tx since he was about 17 yo. Medical Evaluation Reviewed: Yes HOSPITAL COURSE On the unit, Mr. Dodge was admitted on a CV and placed on 15 minutes checks for safety. Pt mainly reported that he was advised to present at hospital and given that he has hx of suicidal thoughts he was told he could get housing. He also reports he was hoping to complete application for SSI. After reviewing risks, benefits and alternative treatment options, pt agreed to continue wellbutrin for depression. He denied visual or auditory hallucinations and did not appear at any point during this admission to be responding to internal stimuli. On the unit, pt presented with bright affect, social with peers, attending some groups. He was sleeping and eating well. No incidences of disruptive behaviors nor use of restraints. He agreed to be connected to OP psych providers. Pt was informed that hospital can't find him housing but clinician can connect him with [facility] in the community to navigate housing resources he may qualify for. Status at Discharge Cognitive/behavioral status at discharge: Pt with bright, non labile affect. No SI/HI. Future oriented in that pt very resourceful advocating for housing resources and looking forward to continue OP tx. Sleep and appetite were fine. No VH/AI. No signs of aggression towards self or others. Functional status at discharge: independent ambulation Overall status at discharge: patient is progressing back to baseline Time Spent with Patient Time attestation: Total time spent providing and/or coordinating discharge services: Discharge Plan Discharge Anticipated Discharge Date/Time: 06/17/22 10:24 Patient Disposition: Home Health Service Discharge Diagnosis: Adjustment Disorder Referrals: Homeless Shelters [Other] - 1 Week ([place] [address] ([phone])) Drop in Center [Other] - 1 Week (You can present to [facility]. You are able to hang out there during the day and you can request an overnight. You are able to stay there for up to two nights a month. They can assist with help getting into a mcc.) Devaughn Novoa (Therapy) [Other] - 06/18/22 12:00 pm (IN OFFICE APPOINTMENT -Please arrive 15 minutes prior to your appointment to fill out paperwork. ) Josiah Cuba (Psychiatry) [Other] - 06/25/22 9:00 am (IN OFFICE APPOINTMENT -Psychiatric Evaluation ) Josiah Cuba (Psychiatry) [Other] - 07/27/22 9:00 am (IN OFFICE APPOINTMENT -Medication Management ) Physician,None [Primary Care Provider] - 1 Week (Has follow up appointment scheduled with [facility] with endocrinology and PCP. Endocrinology Dr. Day 06/25/22 @ 1300 Appointment scheduled For Guevara Mendez 06/25/22 at 1:00 pm May use [facility] walk in clinic or present to nearest ED for emergent care ) Discharge Medications: New bupropion HCl 150 mg Tablet Extended Release 24 Hr 150 mg PO DAILY Qty: 30 0RF trazodone 100 mg tablet 100 mg PO BEDTIME PRN (Reason: insomnia) Qty: 30 0RF insulin glargine [Lantus U-100 Insulin] 100 unit/mL Solution 15 unit subcut BEDTIME Qty: 10 0RF insulin glargine [Lantus U-100 Insulin] 100 unit/mL Solution 15 unit subcut DAILY Qty: 10 0RF Continued pantoprazole 20 mg tablet,delayed release (DR/EC) 1 tab PO DAILY insulin lispro [Humalog KwikPen Insulin] 100 unit/mL insulin pen 3 - 12 unit subcut TID Discontinued insulin glargine [Basaglar KwikPen U-100 Insulin] 100 unit/mL (3 mL) insulin pen 9 unit subcut DAILY Discharge Orders: Discharge Order (Routine); Ordered 06/17/22 Ordered By: Nemo Pelayo Diet: Diabetic diet Activity on Discharge: As tolerated Stand Alone Forms: Patient Portal Discharge page, Community Support Care Plan Goals: 1. Maintain mood 2. No SI/HI 3. No signs of aggression towards self or others Health Concerns: Follow up with PCP Plan of Treatment: 1. Take medications as prescribed 2. Go to nearest ED or call 911 in event of emergency Assessment: Pt with bright, non labile affect. No SI/HI. No signs of psychosis. No VH/AH. Future oriented in that he wants to work with OP providers to complete SSI. No signs of aggression towards self or others. Discharge Date/Time: 06/17/22 14:20
[2022-06-17 13:13] LABS: Glucose, Whole Blood 194 mg/dL (60-115)
== END 2022-06-17 14:20 | disposition home health service (06) | DRG 882 ==
LOC: HO.ED 06-10 18:31 → HO.PADLT16 06-10 18:53
PROVIDERS: Emergency Medicine; Physician Assistant; Psychiatry & Neurology Psychiatry; Social Worker; Student in an Organized Health Care Education/Training Program; Admitting Provider Clinical Nurse Specialist Psychiatric/Mental Health, Adult; Emergency Provider Emergency Medicine Emergency Medical Services; Visit Provider Clinical Nurse Specialist Psychiatric/Mental Health, Adult
DX: F43.23 Adjustment disorder with mixed anxiety and depressed mood (principal); R45.851 Suicidal ideations; N17.9 Acute kidney failure, unspecified; E87.20 Acidosis, unspecified; F17.290 Nicotine dependence, other tobacco product, uncomplicated; E11.65 Type 2 diabetes mellitus with hyperglycemia; Z20.822 Contact with and (suspected) exposure to COVID-19; Z59.01 Sheltered homelessness; Z76.5 Malingerer [conscious simulation]; Z71.6 Tobacco abuse counseling; Z79.4 Long term (current) use of insulin; Z79.899 Other long term (current) drug therapy
CPT/HCPCS: 36415; 80048; 80053; 80061; 80143; 80179; 81001; 82009; 82607; 82746; 82803; 82947; 83036; 83525; 83605; 83735; 84145; 84439; 84443; 85025; 87040; 87635; 93005; 99285

== ENCOUNTER 2022-12-14 15:13 | Outpatient (REF) | payer MEDICAID, SELFPAY ==
[2022-12-14 17:15] LABS: Basophils Absolute Auto 0.1 X10*3/uL (0.0-0.2); Eosinophils Absolute Auto 0.4 X10*3/uL (0.0-0.4); Eosinophils Percent Auto 5.5 % (0-4); Hematocrit 36.4 % (42.0-52.0); Hemoglobin 11.4 g/dl (14.0-18.0); Imm Gran Abs Auto 0.03 X10*3/uL (0.00-0.03); Imm Gran Pct Auto 0.4 % (0.0-0.4); Lymphocytes Absolute Auto 2.7 X10*3/uL (1.2-4.9); Lymphocytes Percent Auto 39.7 % (20-40); MANUAL DIFF FLAG SCAN; Mean Corpuscular HGB Conc 31.3 g/dl (31.0-36.0); Mean Corpuscular Hemoglobin 30.6 pg (27.0-33.0); Mean Corpuscular Volume 97.8 fL (80.0-98.0); Mean Platelet Volume 10.4 fL (9.4-12.4); Monocytes Absolute Auto 0.4 X10*3/uL (0.1-1.2); Monocytes Percent Auto 5.2 % (2-11); Neutrophils Absolute Auto 3.3 x10*3/uL (2.0-8.3); Neutrophils Percent Auto 48.2 % (45-73); PLT CLUMP 1; Red Blood Count 3.72 X10*6/uL (4.60-5.80); Red Cell Distribution Width 12.7 % (11.0-16.0); SCAN SMEAR FLAG 1
[2022-12-14 17:35] LABS: Creatinine Urine 113.86 mg/dL; Microalbum/Creatinine Ratio Ur 18.4 ug/mg cr
[2022-12-14 17:42] LABS: Platelet Count 475 X10*3/uL (160-400); White Blood Count 6.9 X10*3/uL (4.8-10.8)
[2022-12-14 17:46] LABS: Alanine Aminotransferase 159 U/L (0-40); Albumin Level 3.6 g/dL (3.5-5.0); Alkaline Phosphatase 217 U/L (39-117); Anion Gap 19 (12-20); Aspartate Amino Transferase 152 U/L (5-37); Bilirubin Total 0.3 mg/dL (0.0-1.0); Blood Urea Nitrogen 24 mg/dL (9-16); Calcium 8.8 mg/dL (8.4-10.2); Carbon Dioxide 22 mmol/L (22-29); Chloride 103 mmol/L (96-108); Estimated Glomerular Filt Rate > 60; Glucose Random 214 mg/dL (60-115); Potassium 5.7 mmol/L (3.3-5.1); Sodium 138 mmol/L (135-145); Total Protein 6.9 g/dL (6.5-8.0)
[2022-12-14 18:00] LABS: TSH reflex Free T4 2.37 uIU/mL (0.32-4.0)
[2022-12-14 19:00] LABS: SLIDE REVIEW VERIFIED
[2022-12-15 05:25] LABS: Estimated Average Glucose 217 mg/dL; Hemoglobin A1c % 9.2 %
[2022-12-16 03:04] LABS: LDL Cholesterol Direct 166 mg/dL (<100)
[2022-12-20 15:23] LABS: Vitamin D 25-OH, D2 <4 ng/mL; Vitamin D 25-OH, D3 29 ng/mL; Vitamin D 25-OH, Total 29 ng/mL (30-100)
== END 2022-12-14 15:14 | disposition home or self-care (01) ==
LOC: HO.HMGCLDS 15:13
PROVIDERS: PCP Internal Medicine; Visit Provider Internal Medicine
DX: E10.9 Type 1 diabetes mellitus without complications (principal); F33.9 Major depressive disorder, recurrent, unspecified; R53.83 Other fatigue
CPT/HCPCS: 36415; 80053; 82043; 82306; 83036; 83721; 84443; 85025